=== PATIENT | male | born 1940 ===

== ENCOUNTER 2018-05-23 19:25 | Inpatient (IN) | payer MEDICARE, BC ==
[~2018-05-23] VITALS: Ht 175.3 cm; Wt 55.5 kg
[2018-05-23 20:24] VITALS: BP 136/97
[2018-05-23] MEDS ORDERED: MAG HYDROX/AL HYDROX/SIMETH 30 ML ORAL.SUSP PO PRN (20:45)
[2018-05-23] MEDS ORDERED: MAGNESIUM HYDROXIDE 2,400 MG/30 ML ORAL.SUSP. PO PRN (20:45)
[2018-05-23] MEDS ORDERED: METHYL SALICYLATE/MENTHOL TOPICAL OINTMENT 29GM TUBE. TP PRN (20:45)
[2018-05-23] MEDS ORDERED: ACETAMINOPHEN 325 MG TABLET PO PRN (20:45)
[2018-05-23] MEDS ORDERED: LISINOPRIL 20 MG TABLET PO SCH (21:00)
[2018-05-23] MEDS ORDERED: DONE10TA7 PO (21:03)
[2018-05-23] MEDS ORDERED: FURO20TA3 PO (21:03)
[2018-05-23] MEDS ORDERED: ATOR40TA59 PO (21:03)
[2018-05-23] MEDS ORDERED: BENA20TA4 PO (21:03)
[2018-05-23] MEDS ORDERED: IPRA30SP NS (21:03)
[2018-05-23] MEDS ORDERED: TAMS0.4C2 PO (21:03)
[2018-05-23] MEDS ORDERED: LEVE500T6 PO (21:03)
[2018-05-23] MEDS ORDERED: ASPI325T8 PO (21:03)
[2018-05-23] MEDS ORDERED: METF500T5 PO (21:03)
[2018-05-23 21:40] LABS: ALBUMIN 3.6 g/dL (3.4-5.0); ALBUMIN/GLOBULIN RATIO 1.1 (1.0-1.7); BASO # 0.1 x10^3/uL (0.0-0.2); BASO % 1 % (0-3); CALCIUM 9.1 mg/dL (8.5-10.1); CREATININE 0.8 mg/dL (0.7-1.3); EOS # 0.2 x10^3/uL (0.0-0.7); EOS % 2 % (0-3); HEMATOCRIT 41.5 % (39.0-53.0); HEMOGLOBIN 14.4 g/dL (13.0-17.5); LYMPH # 1.8 x10^3/uL (1.0-4.8); LYMPH % 22 % (24-48); MAGNESIUM 1.9 mg/dL (1.8-2.4); MEAN CORPUSCULAR HEMOGLOBIN 33 pg (25-35); MEAN CORPUSCULAR HGB CONC 35 g/dL (31-37); MEAN CORPUSCULAR VOLUME 94 fL (79-100); MONO # 0.6 x10^3/uL (0.0-1.1); MONO % 7 % (0-9); NEUT # 5.8 x10^3uL (1.8-7.7); NEUT % 68 % (31-73); PLATELET COUNT 296 x10^3/uL (140-400); POTASSIUM 3.8 mmol/L (3.5-5.1); RED BLOOD COUNT 4.39 x10^6/uL (4.30-5.70); RED CELL DISTRIBUTION WIDTH 13.7 % (11.5-14.5); TOTAL BILIRUBIN 0.4 mg/dL (0.2-1.0); TOTAL PROTEIN 6.9 g/dL (6.4-8.2); WHITE BLOOD COUNT 8.6 x10^3/uL (4.0-11.0)
[2018-05-23] MEDS: levETIRAcetam 500 MG TABLET PO SCH (22:01)
[2018-05-23] MEDS: DONEPEZIL HCL 10 MG TABLET PO SCH (22:02)
[2018-05-24 05:44] VITALS: BP 163/93
[2018-05-24] MEDS: IPRATROPIUM BROMIDE 0.06% NASAL SPRAY 15ML BOTTLE NS SCH ×2 (09:00→19:22)
[2018-05-24] MEDS ORDERED: FUROSEMIDE 20 MG TABLET PO SCH (09:00)
[2018-05-24] MEDS: metFORMIN 500 MG TABLET PO SCH ×2 (09:54→17:23)
[2018-05-24] MEDS: TAMSULOSIN 0.4 MG CAP.ER.24H. PO SCH (09:54)
[2018-05-24] MEDS: ASPIRIN 325 MG TABLET PO SCH (09:54)
[2018-05-24] MEDS: ATORVASTATIN CALCIUM 20 MG TABLET PO SCH (09:54)
[2018-05-24] MEDS: levETIRAcetam 500 MG TABLET PO SCH ×2 (09:54→19:22)
[2018-05-24] MEDS: LISINOPRIL 20 MG TABLET PO SCH (09:56)
[2018-05-24] MEDS: amLODIPine BESYLATE 5 MG TABLET PO SCH (11:30)
[2018-05-24] MEDS: NICOTINE 14MG PATCH. TD SCH (13:23)
[2018-05-24 13:36] LABS: THYROID STIM HORMONE (TSH) 3.921 uIU/mL (0.358-3.740)
[2018-05-24 15:54] VITALS: BP 108/62
[2018-05-24] MEDS: DONEPEZIL HCL 10 MG TABLET PO SCH (19:22)
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
--- NOTE | 2018-05-24 20:51 | PDOC ---
Exam Note: Lucas Note: Please also refer to the separate dictated note~for this date of service dictated separately.~Patient seen individually. Discussed the patient with Nursing staff reviewed the chart.~Reviewed interim history and current functioning. Reviewed vital signs,~Labs/ Radiology~and current medications noted below. Continue current treatment with the changes noted in the dictated addendum note Assessment: Vital Signs: Vital Signs Date Time Temp Pulse Resp B/P (MAP) Pulse Ox O2 Delivery O2 Flow Rate FiO2 05/24/18 15:54 98.1 72 20 108/62 (77) 97 I&O Intake and Output 05/24/18 07:00 Intake Total 180 ml Balance 180 ml Intake Oral 180 ml Labs: Laboratory Tests Test 05/23/18 21:00 White Blood Count 8.6 x10^3/uL (4.0-11.0) Red Blood Count 4.39 x10^6/uL (4.30-5.70) Hemoglobin 14.4 g/dL (13.0-17.5) Hematocrit 41.5 % (39.0-53.0) Mean Corpuscular Volume 94 fL (79-100) Mean Corpuscular Hemoglobin 33 pg (25-35) Mean Corpuscular Hemoglobin Concent 35 g/dL (31-37) Red Cell Distribution Width 13.7 % (11.5-14.5) Platelet Count 296 x10^3/uL (140-400) Neutrophils (%) (Auto) 68 % (31-73) Lymphocytes (%) (Auto) 22 % (24-48) L Monocytes (%) (Auto) 7 % (0-9) Eosinophils (%) (Auto) 2 % (0-3) Basophils (%) (Auto) 1 % (0-3) Neutrophils # (Auto) 5.8 x10^3uL (1.8-7.7) Lymphocytes # (Auto) 1.8 x10^3/uL (1.0-4.8) Monocytes # (Auto) 0.6 x10^3/uL (0.0-1.1) Eosinophils # (Auto) 0.2 x10^3/uL (0.0-0.7) Basophils # (Auto) 0.1 x10^3/uL (0.0-0.2) Sodium Level 130 mmol/L (136-145) L Potassium Level 3.8 mmol/L (3.5-5.1) Chloride Level 94 mmol/L (98-107) L Carbon Dioxide Level 30 mmol/L (21-32) Anion Gap 6 (6-14) Blood Urea Nitrogen 11 mg/dL (8-26) Creatinine 0.8 mg/dL (0.7-1.3) Estimated GFR (Cockcroft-Gault) 93.0 BUN/Creatinine Ratio 14 (6-20) Glucose Level 132 mg/dL (70-99) H Calcium Level 9.1 mg/dL (8.5-10.1) Magnesium Level 1.9 mg/dL (1.8-2.4) Iron Level 65 ug/dL (65-175) Total Iron Binding Capacity 263 ug/dL (250-450) Iron Saturation 25 % (15-34) Total Bilirubin 0.4 mg/dL (0.2-1.0) Aspartate Amino Transferase (AST) 18 U/L (15-37) Alanine Aminotransferase (ALT) 24 U/L (16-63) Alkaline Phosphatase 121 U/L (46-116) H Total Protein 6.9 g/dL (6.4-8.2) Albumin 3.6 g/dL (3.4-5.0) Albumin/Globulin Ratio 1.1 (1.0-1.7) Triglycerides Level 62 mg/dL (0-150) Cholesterol Level 173 mg/dL (0-200) LDL Cholesterol, Calculated 63 mg/dL (0-100) VLDL Cholesterol, Calculated 12 mg/dL (0-40) Non-HDL Cholesterol Calculated 75 mg/dL (0-129) HDL Cholesterol 98 mg/dL (40-60) H Cholesterol/HDL Ratio 1.0 Vitamin B12 Level 532 pg/mL (247-911) 25-Hydroxy Vitamin D Total 27.4 ng/mL (30-100) L Thyroid Stimulating Hormone (TSH) 3.921 uIU/mL (0.358-3.740) Thyroxine (T4) 8.0 ug/dL (4.5-12.0) Total Triiodothyronine (TT3) 86 ng/dL (71-180) Treponema pallidum Antibody Nonreactive (Nonreactive) Current Medications: Meds: Current Medications Acetaminophen (Tylenol) 650 mg PRN Q6HRS PRN PO PAIN / TEMP; Start 8/1/18 at 20:45 Multi-Ingredient Ointment (Analgesic [place]) 1 john PRN QID PRN TP MUSCLE PAIN; Start 05/23/18 at 20:45 Al Hydroxide/Mg Hydroxide (Mylanta Plus Xs) 15 ml PRN AFTMEALHC PRN PO DYSPEPSIA; Start 05/23/18 at 20:45 Magnesium Hydroxide (Milk Of Magnesia) 2,400 mg PRN QHS PRN PO CONSTIPATION; Start 05/23/18 at 20:45 Donepezil HCl (Aricept) 10 mg QHS PO Last administered on 05/24/18at 19:22; Start 05/23/18 at 21:00 Aspirin (Vivian Aspirin) 325 mg DAILY PO Last administered on 05/24/18at 09:54; Start 05/24/18 at 09:00 Furosemide (Lasix) 20 mg DAILY PO Last administered on 05/24/18at 09:54; Start at 09:00; Stop 05/24/18 at 11:14; Status DC Tamsulosin HCl (Flomax) 0.4 mg DAILY PO Last administered on 05/24/18at 09:54; Start 05/24/18 at 09:00 Atorvastatin Calcium (Lipitor) 40 mg DAILY PO Last administered on 05/24/18at 09: 54; Start 05/24/18 at 09:00 Lisinopril (Prinivil) 20 mg 05/23/18 PO Last administered on 05/24/18at 09:55; Start 05/23/18 at 21:00; Stop 05/23/18 at 21:10; Status DC Ipratropium [place] (Atrovent Nasal) 2 spray BID NS ; Start 05/24/18 at 09:00 Levetiracetam (Keppra) 500 mg BID PO Last administered on 05/24/18at 19:22; Start 05/23/18 at 21:00 Metformin HCl (Glucophage) 500 mg BIDWMEALS PO Last administered on 05/24/18at 17 :23; Start 05/24/18 at 08:00 Lisinopril (Prinivil) 20 mg DAILY PO Last administered on 05/24/18at 09:56; Start 05/24/18 at 09:00 Amlodipine Besylate (Norvasc) 5 mg DAILY PO ; Start 05/24/18 at 11:30 Nicotine (Nicoderm Cq 14mg) 1 patch DAILY TD Last administered on 05/24/18at 13: 23; Start 05/24/18 at 11:30 Active Scripts Active Reported Aspirin 325 Mg Tablet 325 Mg PO DAILY Atorvastatin Calcium 40 Mg Tablet 40 Mg PO DAILY Benazepril Hcl 20 Mg Tablet 20 Mg PO QHS Donepezil Hcl 10 Mg Tablet 10 Mg PO QHS Furosemide 20 Mg Tablet 20 Mg PO DAILY Ipratropium [place] 30 Ml [place] 2 Spr NS BID Levetiracetam 500 Mg Tablet 500 Mg PO BID Metformin Hcl 500 Mg Tablet 500 Mg PO BIDWMEALS Tamsulosin Hcl 0.4 Mg Cap.er.24h 0.4 Mg PO DAILY I have reviewed the current psychotropics carefully including drug interactions. Risk benefit ratio favors no change other than as noted in my dictated progress note. Diagnosis: Problems: (1) Anxiety disorder (2) Dementia in Alzheimer's disease with delusions (3) Dementia in Alzheimer's disease with depression (4) Dementia, vascular, with delusions (5) Dementia, vascular, with depression (6) Impulse control disorder CHAPITO CASTANO MD May 24, 2018 20:51
[2018-05-25 02:08] LABS: HEMOGLOBIN A1C 5.6 % (4.8-5.6)
[2018-05-25 05:56] VITALS: BP 130/70
[2018-05-25] MEDS: NICOTINE 14MG PATCH. TD SCH (07:55)
[2018-05-25] MEDS: ATORVASTATIN CALCIUM 20 MG TABLET PO SCH (07:57)
[2018-05-25] MEDS: ASPIRIN 325 MG TABLET PO SCH (07:57)
[2018-05-25] MEDS: TAMSULOSIN 0.4 MG CAP.ER.24H. PO SCH (07:58)
[2018-05-25] MEDS: LISINOPRIL 20 MG TABLET PO SCH (07:58)
[2018-05-25] MEDS: levETIRAcetam 500 MG TABLET PO SCH ×2 (07:58→19:34)
[2018-05-25] MEDS: amLODIPine BESYLATE 5 MG TABLET PO SCH (07:58)
[2018-05-25] MEDS: metFORMIN 500 MG TABLET PO SCH ×2 (07:58→16:36)
[2018-05-25] MEDS: IPRATROPIUM BROMIDE 0.06% NASAL SPRAY 15ML BOTTLE NS SCH ×2 (07:59→19:36)
[2018-05-25 12:07] LABS: BILIRUBIN,URINE NEG (NEG); CLARITY,URINE HAZY; COLOR,URINE AMBER; GLUCOSE,URINE NEG (NEG)
[2018-05-25 12:08] LABS: BACTERIA,URINE FEW /HPF (0-FEW); GRANULAR CASTS,URINE OCC /HPF; HYALINE CASTS, URINE MANY /HPF; NITRITE,URINE NEG (NEG); SQUAMOUS EPITHELIAL CELL,UR FEW /LPF; UROBILINOGEN,URINE 0.2 mg/dL (0.2 mg/dL)
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
[2018-05-25] MEDS: CHOLECALCIFEROL (VITAMIN D3) 50,000 UNIT CAPSULE PO SCH (13:41)
[2018-05-25 16:00] VITALS: BP 93/57
[2018-05-25] MEDS: DONEPEZIL HCL 10 MG TABLET PO SCH (19:34)
[2018-05-25] MEDS: QUEtiapine 25 MG TABLET. PO SCH (19:36)
--- NOTE | 2018-05-25 20:45 | PDOC ---
Exam Note: Lucas Note: Please also refer to the separate dictated note~for this date of service dictated separately.~Patient seen individually. Discussed the patient with Nursing staff reviewed the chart.~Reviewed interim history and current functioning. Reviewed vital signs,~Labs/ Radiology~and current medications noted below. Continue current treatment with the changes noted in the dictated addendum note Assessment: Vital Signs: Vital Signs Date Time Temp Pulse Resp B/P (MAP) Pulse Ox O2 Delivery O2 Flow Rate FiO2 05/25/18 16:00 98.1 98 18 93/57 (69) 95 I&O Intake and Output 05/25/18 07:00 Intake Total 840 ml Balance 840 ml Intake Oral 840 ml # Voids 1 Labs: Laboratory Tests Test 05/25/18 07:39 05/25/18 11:35 Glucose (Fingerstick) 121 mg/dL (70-99) H Urine Collection Type Unknown Urine Color [place] Urine Clarity Hazy Urine pH 6.5 Urine Specific [place] 1.015 Urine Protein 30 mg/dl (NEG-TRACE) Urine Glucose (UA) Neg mg/dL (NEG) Urine Ketones (Stick) Trace mg/dL (NEG) Urine Blood Trace (NEG) Urine Nitrite Neg (NEG) Urine Bilirubin Neg (NEG) Urine Urobilinogen Dipstick 0.2 mg/dL (0.2 mg/dL) Urine Leukocyte Esterase Neg (NEG) Urine RBC 3-5 /HPF (0-2) Urine WBC 1-4 /HPF (0-4) Urine Squamous Epithelial Cells Few /LPF Urine Bacteria Few /HPF (0-FEW) Urine Hyaline Casts Many /HPF Urine Granular Casts Occ /HPF Urine Mucus Mod /LPF Current Medications: Meds: Current Medications Acetaminophen (Tylenol) 650 mg PRN Q6HRS PRN PO PAIN / TEMP; Start 05/23/18 at 20:45 Multi-Ingredient Ointment (Analgesic [place]) 1 john PRN QID PRN TP MUSCLE PAIN; Start 05/23/18 at 20:45 Al Hydroxide/Mg Hydroxide (Mylanta Plus Xs) 15 ml PRN AFTMEALHC PRN PO DYSPEPSIA; Start 05/23/18 at 20:45 Magnesium Hydroxide (Milk Of Magnesia) 2,400 mg PRN QHS PRN PO CONSTIPATION; Start 05/23/18 at 20:45 Donepezil HCl (Aricept) 10 mg QHS PO Last administered on 05/25/18 19:34; Start 05/23/18 at 21:00 Aspirin (Vivian Aspirin) 325 mg DAILY PO Last administered on 05/25/18 07:57; Start 05/24/18 at 09:00 Furosemide (Lasix) 20 mg DAILY PO Last administered on 05/24/18 09:54; Start at 09:00; Stop 05/24/18 at 11:14; Status DC Tamsulosin HCl (Flomax) 0.4 mg DAILY PO Last administered on 05/25/18 07:58; Start 05/24/18 at 09:00 Atorvastatin Calcium (Lipitor) 40 mg DAILY PO Last administered on 05/25/18 07: 57; Start 05/24/18 at 09:00 Lisinopril (Prinivil) 20 mg 05/23/18 PO Last administered on 05/24/18 09:55; Start 05/23/18 at 21:00; Stop 05/23/18 at 21:10; Status DC Ipratropium [place] (Atrovent Nasal) 2 spray BID NS Last administered on 19:36; Start 05/24/18 at 09:00 Levetiracetam (Keppra) 500 mg BID PO Last administered on 05/25/18 19:34; Start 05/23/18 at 21:00 Metformin HCl (Glucophage) 500 mg BIDWMEALS PO Last administered on 05/25/18 16 :36; Start 05/24/18 at 08:00 Lisinopril (Prinivil) 20 mg DAILY PO Last administered on 05/25/18 07:58; Start 05/24/18 at 09:00 Amlodipine Besylate (Norvasc) 5 mg DAILY PO Last administered on 05/25/18 07:58 ; Start 05/24/18 at 11:30 Nicotine (Nicoderm Cq 14mg) 1 patch DAILY TD Last administered on 05/25/18 07: 55; Start 05/24/18 at 11:30 Vitamin D (Vitamin D3) 50,000 unit WEEKLY PO Last administered on 05/25/18 13: 41; Start 05/25/18 at 13:30 Sertraline HCl (Zoloft) 25 mg DAILY PO ; Start 05/26/18 at 09:00; Stop 05/27/18 at 09:01 Sertraline HCl (Zoloft) 50 mg DAILY PO ; Start 05/26/18 at 09:00 Quetiapine Fumarate (SEROquel) 25 mg QHS PO Last administered on 05/25/18at 19:36 ; Start 05/25/18 at 21:00 Active Scripts Active Reported Aspirin 325 Mg Tablet 325 Mg PO DAILY Atorvastatin Calcium 40 Mg Tablet 40 Mg PO DAILY Benazepril Hcl 20 Mg Tablet 20 Mg PO QHS Donepezil Hcl 10 Mg Tablet 10 Mg PO QHS Furosemide 20 Mg Tablet 20 Mg PO DAILY Ipratropium [place] 30 Ml [place] 2 Spr NS BID Levetiracetam 500 Mg Tablet 500 Mg PO BID Metformin Hcl 500 Mg Tablet 500 Mg PO BIDWMEALS Tamsulosin Hcl 0.4 Mg Cap.er.24h 0.4 Mg PO DAILY I have reviewed the current psychotropics carefully including drug interactions. Risk benefit ratio favors no change other than as noted in my dictated progress note. Diagnosis: Problems: (1) Anxiety disorder (2) Dementia in Alzheimer's disease with delusions (3) Dementia in Alzheimer's disease with depression (4) Dementia, vascular, with delusions (5) Dementia, vascular, with depression (6) Impulse control disorder CHAPITO CASTANO MD May 25, 2018 20:45
[2018-05-26 06:04] VITALS: BP 128/57
[2018-05-26] MEDS: LISINOPRIL 20 MG TABLET PO SCH (08:19)
[2018-05-26] MEDS: NICOTINE 14MG PATCH. TD SCH (08:19)
[2018-05-26] MEDS: ATORVASTATIN CALCIUM 20 MG TABLET PO SCH (08:20)
[2018-05-26] MEDS: TAMSULOSIN 0.4 MG CAP.ER.24H. PO SCH (08:20)
[2018-05-26] MEDS: ASPIRIN 325 MG TABLET PO SCH (08:20)
[2018-05-26] MEDS: levETIRAcetam 500 MG TABLET PO SCH ×2 (08:20→19:35)
[2018-05-26] MEDS: amLODIPine BESYLATE 5 MG TABLET PO SCH (08:21)
[2018-05-26] MEDS: metFORMIN 500 MG TABLET PO SCH ×2 (08:21→17:55)
[2018-05-26] MEDS: SERTRALINE 50 MG TABLET. PO SCH (08:35)
[2018-05-26] MEDS ORDERED: SERTRALINE 25 MG TABLET. PO SCH (09:00)
[2018-05-26] MEDS: IPRATROPIUM BROMIDE 0.06% NASAL SPRAY 15ML BOTTLE NS SCH ×2 (09:00→19:35)
[2018-05-26 16:15] VITALS: BP 117/68
[2018-05-26] MEDS: QUEtiapine 25 MG TABLET. PO SCH (19:35)
[2018-05-26] MEDS: DONEPEZIL HCL 10 MG TABLET PO SCH (19:35)
[2018-05-27 05:53] VITALS: BP 152/74
[2018-05-27] MEDS: SERTRALINE 50 MG TABLET. PO SCH (07:52)
[2018-05-27] MEDS: TAMSULOSIN 0.4 MG CAP.ER.24H. PO SCH (07:52)
[2018-05-27] MEDS: ATORVASTATIN CALCIUM 20 MG TABLET PO SCH (07:52)
[2018-05-27] MEDS: levETIRAcetam 500 MG TABLET PO SCH ×2 (07:52→21:50)
[2018-05-27] MEDS: NICOTINE 14MG PATCH. TD SCH (07:52)
[2018-05-27] MEDS: ASPIRIN 325 MG TABLET PO SCH (07:52)
[2018-05-27] MEDS: amLODIPine BESYLATE 5 MG TABLET PO SCH (07:53)
[2018-05-27] MEDS: LISINOPRIL 20 MG TABLET PO SCH (07:53)
[2018-05-27] MEDS: metFORMIN 500 MG TABLET PO SCH ×2 (07:53→16:47)
[2018-05-27] MEDS: IPRATROPIUM BROMIDE 0.06% NASAL SPRAY 15ML BOTTLE NS SCH ×2 (07:54→21:50)
[2018-05-27 16:26] VITALS: BP 110/61
--- NOTE | 2018-05-27 20:00 | PDOC ---
Exam Note: Lucas Note: Late entry for date of service May. Please also refer to the separate dictated note~for this date of service dictated separately.~Patient seen individually. Discussed the patient with Nursing staff reviewed the chart.~ Reviewed interim history and current functioning. Reviewed vital signs,~Labs/ Radiology~and current medications noted below. Continue current treatment with the changes noted in the dictated addendum note Assessment: Vital Signs: VS - Last 72 Hours, by Label Date Time Temp Pulse Resp B/P (MAP) Pulse Ox O2 Delivery O2 Flow Rate FiO2 05/27/18 16:26 99.0 64 20 110/61 (77) 94 Room Air 05/27/18 07:53 60 152/74 05/27/18 07:53 60 152/74 05/27/18 05:53 98.0 60 20 152/74 (100) 94 05/26/18 16:15 97.7 59 18 117/68 (84) 96 05/26/18 08:21 60 128/57 05/26/18 08:19 60 128/57 05/26/18 06:04 97.8 60 20 128/57 (80) 95 Room Air 05/25/18 16:00 98.1 98 18 93/57 (69) 95 05/25/18 07:58 67 130/70 05/25/18 07:58 67 130/70 05/25/18 05:56 98.3 67 14 130/70 (90) 92 Vital Signs Date Time Temp Pulse Resp B/P (MAP) Pulse Ox O2 Delivery O2 Flow Rate FiO2 05/27/18 16:26 99.0 64 20 110/61 (77) 94 Room Air I&O Intake and Output 05/27/18 07:00 Intake Total 1320 ml Balance 1320 ml Intake Oral 1320 ml # Voids 1 Labs: Laboratory Tests Test 05/27/18 07:30 Glucose (Fingerstick) 98 mg/dL (70-99) Current Medications: Meds: Current Medications Acetaminophen (Tylenol) 650 mg PRN Q6HRS PRN PO PAIN / TEMP; Start 05/23/18 at 20:45 Multi-Ingredient Ointment (Analgesic [place]) 1 john PRN QID PRN TP MUSCLE PAIN; Start 05/23/18 at 20:45 Al Hydroxide/Mg Hydroxide (Mylanta Plus Xs) 15 ml PRN AFTMEALHC PRN PO DYSPEPSIA; Start 05/23/18 at 20:45 Magnesium Hydroxide (Milk Of Magnesia) 2,400 mg PRN QHS PRN PO CONSTIPATION; Start 05/23/18 at 20:45 Donepezil HCl (Aricept) 10 mg QHS PO Last administered on 05/26/18at 19:35; Start 05/23/18 at 21:00 Aspirin (Vivian Aspirin) 325 mg DAILY PO Last administered on 05/27/18 07:52; Start 05/24/18 at 09:00 Furosemide (Lasix) 20 mg DAILY PO Last administered on 05/24/18 09:54; Start at 09:00; Stop 05/24/18 at 11:14; Status DC Tamsulosin HCl (Flomax) 0.4 mg DAILY PO Last administered on 05/27/18 07:52; Start 05/24/18 at 09:00 Atorvastatin Calcium (Lipitor) 40 mg DAILY PO Last administered on 05/27/18 07: 52; Start 05/24/18 at 09:00 Lisinopril (Prinivil) 20 mg 05/23/18 PO Last administered on 05/24/18 09:55; Start 05/23/18 at 21:00; Stop 05/23/18 at 21:10; Status DC Ipratropium [place] (Atrovent Nasal) 2 spray BID NS Last administered on 07:54; Start 05/24/18 at 09:00 Levetiracetam (Keppra) 500 mg BID PO Last administered on 05/27/18 07:52; Start 05/23/18 at 21:00 Metformin HCl (Glucophage) 500 mg BIDWMEALS PO Last administered on 05/27/18 16 :47; Start 05/24/18 at 08:00 Lisinopril (Prinivil) 20 mg DAILY PO Last administered on 05/27/18 07:53; Start 05/24/18 at 09:00 Amlodipine Besylate (Norvasc) 5 mg DAILY PO Last administered on 05/27/18 07:53 ; Start 05/24/18 at 11:30 Nicotine (Nicoderm Cq 14mg) 1 patch DAILY TD Last administered on 8/5/18at 07: 52; Start 05/24/18 at 11:30 Vitamin D (Vitamin D3) 50,000 unit WEEKLY PO Last administered on 05/25/18at 13: 41; Start 05/25/18 at 13:30 Sertraline HCl (Zoloft) 25 mg DAILY PO ; Start 05/26/18 at 09:00; Stop 05/26/18 at 19:55; Status DC Sertraline HCl (Zoloft) 50 mg DAILY PO Last administered on 05/27/18at 07:52; Start 05/26/18 at 09:00 Quetiapine Fumarate (SEROquel) 25 mg QHS PO Last administered on 05/26/18at 19:35 ; Start 05/25/18 at 21:00 Active Scripts Active Reported Aspirin 325 Mg Tablet 325 Mg PO DAILY Atorvastatin Calcium 40 Mg Tablet 40 Mg PO DAILY Benazepril Hcl 20 Mg Tablet 20 Mg PO QHS Donepezil Hcl 10 Mg Tablet 10 Mg PO QHS Furosemide 20 Mg Tablet 20 Mg PO DAILY Ipratropium [place] 30 Ml [place] 2 Spr NS BID Levetiracetam 500 Mg Tablet 500 Mg PO BID Metformin Hcl 500 Mg Tablet 500 Mg PO BIDWMEALS Tamsulosin Hcl 0.4 Mg Cap.er.24h 0.4 Mg PO DAILY I have reviewed the current psychotropics carefully including drug interactions. Risk benefit ratio favors no change other than as noted in my dictated progress note. Diagnosis: Problems: (1) Anxiety disorder (2) Dementia in Alzheimer's disease with delusions (3) Dementia in Alzheimer's disease with depression (4) Dementia, vascular, with delusions (5) Dementia, vascular, with depression (6) Impulse control disorder CHAPITO CASTANO MD May 27, 2018 20:00
--- NOTE | 2018-05-27 20:01 | PDOC ---
Exam Note: Lucas Note: Please also refer to the separate dictated note~for this date of service dictated separately.~Patient seen individually. Discussed the patient with Nursing staff reviewed the chart.~Reviewed interim history and current functioning. Reviewed vital signs,~Labs/ Radiology~and current medications noted below. Continue current treatment with the changes noted in the dictated addendum note Assessment: Vital Signs: Vital Signs Date Time Temp Pulse Resp B/P (MAP) Pulse Ox O2 Delivery O2 Flow Rate FiO2 05/27/18 16:26 99.0 64 20 110/61 (77) 94 Room Air I&O Intake and Output 05/27/18 07:00 Intake Total 1320 ml Balance 1320 ml Intake Oral 1320 ml # Voids 1 Labs: Laboratory Tests Test 05/27/18 07:30 Glucose (Fingerstick) 98 mg/dL (70-99) Current Medications: Meds: Current Medications Acetaminophen (Tylenol) 650 mg PRN Q6HRS PRN PO PAIN / TEMP; Start 05/23/18 at 20:45 Multi-Ingredient Ointment (Analgesic [place]) 1 john PRN QID PRN TP MUSCLE PAIN; Start 05/23/18 at 20:45 Al Hydroxide/Mg Hydroxide (Mylanta Plus Xs) 15 ml PRN AFTMEALHC PRN PO DYSPEPSIA; Start 05/23/18 at 20:45 Magnesium Hydroxide (Milk Of Magnesia) 2,400 mg PRN QHS PRN PO CONSTIPATION; Start 05/23/18 at 20:45 Donepezil HCl (Aricept) 10 mg QHS PO Last administered on 05/26/18at 19:35; Start 05/23/18 at 21:00 Aspirin (Vivian Aspirin) 325 mg DAILY PO Last administered on 05/27/18at 07:52; Start 05/24/18 at 09:00 Furosemide (Lasix) 20 mg DAILY PO Last administered on 05/24/18 09:54; Start at 09:00; Stop 05/24/18 at 11:14; Status DC Tamsulosin HCl (Flomax) 0.4 mg DAILY PO Last administered on 05/27/18 07:52; Start 05/24/18 at 09:00 Atorvastatin Calcium (Lipitor) 40 mg DAILY PO Last administered on 05/27/18at 07: 52; Start 05/24/18 at 09:00 Lisinopril (Prinivil) 20 mg 05/23/18 PO Last administered on 05/24/18at 09:55; Start 05/23/18 at 21:00; Stop 05/23/18 at 21:10; Status DC Ipratropium [place] (Atrovent Nasal) 2 spray BID NS Last administered on 07:54; Start 05/24/18 at 09:00 Levetiracetam (Keppra) 500 mg BID PO Last administered on 05/27/18 07:52; Start 05/23/18 at 21:00 Metformin HCl (Glucophage) 500 mg BIDWMEALS PO Last administered on 05/27/18 16 :47; Start 05/24/18 at 08:00 Lisinopril (Prinivil) 20 mg DAILY PO Last administered on 05/27/18 07:53; Start 05/24/18 at 09:00 Amlodipine Besylate (Norvasc) 5 mg DAILY PO Last administered on 05/27/18 07:53 ; Start 05/24/18 at 11:30 Nicotine (Nicoderm Cq 14mg) 1 patch DAILY TD Last administered on 05/27/18 07: 52; Start 05/24/18 at 11:30 Vitamin D (Vitamin D3) 50,000 unit WEEKLY PO Last administered on 05/25/18at 13: 41; Start 05/25/18 at 13:30 Sertraline HCl (Zoloft) 25 mg DAILY PO ; Start 05/26/18 at 09:00; Stop 05/26/18 at 19:55; Status DC Sertraline HCl (Zoloft) 50 mg DAILY PO Last administered on 05/27/18 07:52; Start 05/26/18 at 09:00 Quetiapine Fumarate (SEROquel) 25 mg QHS PO Last administered on 05/26/18 19:35 ; Start 05/25/18 at 21:00 Active Scripts Active Reported Aspirin 325 Mg Tablet 325 Mg PO DAILY Atorvastatin Calcium 40 Mg Tablet 40 Mg PO DAILY Benazepril Hcl 20 Mg Tablet 20 Mg PO QHS Donepezil Hcl 10 Mg Tablet 10 Mg PO QHS Furosemide 20 Mg Tablet 20 Mg PO DAILY Ipratropium [place] 30 Ml [place] 2 Spr NS BID Levetiracetam 500 Mg Tablet 500 Mg PO BID Metformin Hcl 500 Mg Tablet 500 Mg PO BIDWMEALS Tamsulosin Hcl 0.4 Mg Cap.er.24h 0.4 Mg PO DAILY I have reviewed the current psychotropics carefully including drug interactions. Risk benefit ratio favors no change other than as noted in my dictated progress note. Diagnosis: Problems: (1) Anxiety disorder (2) Dementia in Alzheimer's disease with delusions (3) Dementia in Alzheimer's disease with depression (4) Dementia, vascular, with delusions (5) Dementia, vascular, with depression (6) Impulse control disorder CHAPITO CASTANO MD May 27, 2018 20:01
[2018-05-27] MEDS: DONEPEZIL HCL 10 MG TABLET PO SCH (21:50)
[2018-05-27] MEDS: QUEtiapine 25 MG TABLET. PO SCH (21:50)
--- NOTE | 2018-05-27 23:22 | PN ---
DATE: 05/25/2018 PSYCHIATRIC PROGRESS NOTE This late entry 05/25/2018 covers elements not covered in my initial note. SUBJECTIVE: Met with the patient in the evening. The patient remains confused, anxious, redirectable. REVIEW OF SYSTEMS: Hard of hearing. Impaired ambulation. No CV, , pulmonary, eye system symptoms on review. MENTAL STATUS EXAM: Oriented to himself. Insight, judgment, recent, remote memory, attention, concentration, fund of knowledge is poor, consistent with his diagnoses mentioned in my initial note. PLAN: No change from initial note, but the patient's UA is negative. We will start Zoloft 25 mg a day, increase to 50 mg a day in 2 days. He has been wanting to leave, anxious, wandering, short-term memory is impaired. Also appears paranoid. We will add Seroquel 25 mg at bedtime. Adjust further as clinically indicated. MAN Wayne CASTANO MD DR: HUNG/arianne JOB#: [id number] / [id number]
[2018-05-28 06:34] VITALS: BP 134/59
[2018-05-28] MEDS: amLODIPine BESYLATE 5 MG TABLET PO SCH (08:14)
[2018-05-28] MEDS: LISINOPRIL 20 MG TABLET PO SCH (08:15)
[2018-05-28] MEDS: levETIRAcetam 500 MG TABLET PO SCH ×2 (08:15→20:22)
[2018-05-28] MEDS: TAMSULOSIN 0.4 MG CAP.ER.24H. PO SCH (08:15)
[2018-05-28] MEDS: ASPIRIN 325 MG TABLET PO SCH (08:15)
[2018-05-28] MEDS: metFORMIN 500 MG TABLET PO SCH ×2 (08:15→17:10)
[2018-05-28] MEDS: ATORVASTATIN CALCIUM 20 MG TABLET PO SCH (08:15)
[2018-05-28] MEDS: IPRATROPIUM BROMIDE 0.06% NASAL SPRAY 15ML BOTTLE NS SCH ×2 (08:16→20:23)
[2018-05-28] MEDS: NICOTINE 14MG PATCH. TD SCH (08:16)
[2018-05-28] MEDS: SERTRALINE 50 MG TABLET. PO SCH (08:16)
[2018-05-28 16:13] VITALS: BP 126/54
[2018-05-28] MEDS: DONEPEZIL HCL 10 MG TABLET PO SCH (20:22)
[2018-05-28] MEDS: QUEtiapine 25 MG TABLET. PO SCH (20:22)
--- NOTE | 2018-05-28 21:04 | PN ---
DATE: 05/26/2018 PSYCHIATRIC PROGRESS NOTE This is a late entry for 05/26/2018, covers elements not covered in my initial note. SUBJECTIVE: I met with the patient in the evening. The patient slept 5-3/4 hours previous night, remains confused, otherwise cooperative, anxious at times, restless. REVIEW OF SYSTEMS: No CV, , pulmonary, eye, ENT system symptoms on review. Reliability poor. MENTAL STATUS EXAM: Oriented to himself. Insight, judgment, recent and remote memory, attention, concentration, fund of knowledge poor, consistent with his diagnosis mentioned in my initial note. PLAN: No change from initial note. MAN Wayne CASTANO MD DR: HUNG/arianne JOB#: [id number] / [id number]
--- NOTE | 2018-05-28 21:09 | PDOC ---
Exam Note: Lucas Note: Please also refer to the separate dictated note~for this date of service dictated separately.~Patient seen individually. Discussed the patient with Nursing staff reviewed the chart.~Reviewed interim history and current functioning. Reviewed vital signs,~Labs/ Radiology~and current medications noted below. Continue current treatment with the changes noted in the dictated addendum note Assessment: Vital Signs: Vital Signs Date Time Temp Pulse Resp B/P (MAP) Pulse Ox O2 Delivery O2 Flow Rate FiO2 05/28/18 16:13 98.3 62 20 126/54 (78) 95 05/28/18 06:34 Room Air I&O Intake and Output 05/28/18 07:00 Intake Total 1320 ml Balance 1320 ml Intake Oral 1320 ml # Voids 1 Labs: Laboratory Tests Test 05/28/18 07:16 Glucose (Fingerstick) 95 mg/dL (70-99) Current Medications: Meds: Current Medications Acetaminophen (Tylenol) 650 mg PRN Q6HRS PRN PO PAIN / TEMP; Start 05/23/18 at 20:45 Multi-Ingredient Ointment (Analgesic [place]) 1 john PRN QID PRN TP MUSCLE PAIN; Start 05/23/18 at 20:45 Al Hydroxide/Mg Hydroxide (Mylanta Plus Xs) 15 ml PRN AFTMEALHC PRN PO DYSPEPSIA; Start 05/23/18 at 20:45 Magnesium Hydroxide (Milk Of Magnesia) 2,400 mg PRN QHS PRN PO CONSTIPATION; Start 05/23/18 at 20:45 Donepezil HCl (Aricept) 10 mg QHS PO Last administered on 05/28/18at 20:22; Start 05/23/18 at 21:00 Aspirin (Vivian Aspirin) 325 mg DAILY PO Last administered on 05/28/18at 08:15; Start 05/24/18 at 09:00 Furosemide (Lasix) 20 mg DAILY PO Last administered on 05/24/18at 09:54; Start at 09:00; Stop 05/24/18 at 11:14; Status DC Tamsulosin HCl (Flomax) 0.4 mg DAILY PO Last administered on 05/28/18at 08:15; Start 05/24/18 at 09:00 Atorvastatin Calcium (Lipitor) 40 mg DAILY PO Last administered on 05/28/18at 08: 15; Start 05/24/18 at 09:00 Lisinopril (Prinivil) 20 mg 05/23/18 PO Last administered on 05/24/18at 09:55; Start 05/23/18 at 21:00; Stop 05/23/18 at 21:10; Status DC Ipratropium [place] (Atrovent Nasal) 2 spray BID NS Last administered on 20:23; Start 05/24/18 at 09:00 Levetiracetam (Keppra) 500 mg BID PO Last administered on 05/28/18 20:22; Start 05/23/18 at 21:00 Metformin HCl (Glucophage) 500 mg BIDWMEALS PO Last administered on 05/28/18 17 :10; Start 05/24/18 at 08:00 Lisinopril (Prinivil) 20 mg DAILY PO Last administered on 05/28/18 08:15; Start 05/24/18 at 09:00 Amlodipine Besylate (Norvasc) 5 mg DAILY PO Last administered on 05/28/18 08:14 ; Start 05/24/18 at 11:30 Nicotine (Nicoderm Cq 14mg) 1 patch DAILY TD Last administered on 05/28/18 08: 16; Start 05/24/18 at 11:30 Vitamin D (Vitamin D3) 50,000 unit WEEKLY PO Last administered on 05/25/18at 13: 41; Start 05/25/18 at 13:30 Sertraline HCl (Zoloft) 25 mg DAILY PO ; Start 05/26/18 at 09:00; Stop 05/26/18 at 19:55; Status DC Sertraline HCl (Zoloft) 50 mg DAILY PO Last administered on 05/28/18 08:16; Start 05/26/18 at 09:00 Quetiapine Fumarate (SEROquel) 25 mg QHS PO Last administered on 05/28/18 20:22 ; Start 05/25/18 at 21:00 Active Scripts Active Reported Aspirin 325 Mg Tablet 325 Mg PO DAILY Atorvastatin Calcium 40 Mg Tablet 40 Mg PO DAILY Benazepril Hcl 20 Mg Tablet 20 Mg PO QHS Donepezil Hcl 10 Mg Tablet 10 Mg PO QHS Furosemide 20 Mg Tablet 20 Mg PO DAILY Ipratropium [place] 30 Ml [place] 2 Spr NS BID Levetiracetam 500 Mg Tablet 500 Mg PO BID Metformin Hcl 500 Mg Tablet 500 Mg PO BIDWMEALS Tamsulosin Hcl 0.4 Mg Cap.er.24h 0.4 Mg PO DAILY I have reviewed the current psychotropics carefully including drug interactions. Risk benefit ratio favors no change other than as noted in my dictated progress note. Diagnosis: Problems: (1) Anxiety disorder (2) Dementia in Alzheimer's disease with delusions (3) Dementia in Alzheimer's disease with depression (4) Dementia, vascular, with delusions (5) Dementia, vascular, with depression (6) Impulse control disorder CHAPITO CASTANO MD May 28, 2018 21:08
--- NOTE | 2018-05-28 21:11 | PN ---
DATE: 05/27/2018 This is a late entry 05/27/2018 covers elements not covered in my initial note. SUBJECTIVE: I met with the patient in the evening. The patient has been confused, cooperative, social, unable to find his room and had to walk with him after my rounds to his room and he was very appreciative of this. REVIEW OF SYSTEMS: No CV, , pulmonary, eye, ENT system symptoms on review. Reliability poor. MENTAL STATUS EXAM: Oriented to himself. Insight, judgment, recent and remote memory, attention, concentration, fund of knowledge poor, consistent with his diagnosis mentioned in my initial note. PLAN: No change from initial note. MAN Wayne CASTANO MD DR: HUNG/arianne JOB#: [id number] / [id number]
[2018-05-29 06:51] VITALS: BP 125/71
[2018-05-29] MEDS: LISINOPRIL 20 MG TABLET PO SCH (08:03)
[2018-05-29] MEDS: ATORVASTATIN CALCIUM 20 MG TABLET PO SCH (08:03)
[2018-05-29] MEDS: TAMSULOSIN 0.4 MG CAP.ER.24H. PO SCH (08:05)
[2018-05-29] MEDS: SERTRALINE 50 MG TABLET. PO SCH (08:05)
[2018-05-29] MEDS: metFORMIN 500 MG TABLET PO SCH ×2 (08:05→17:27)
[2018-05-29] MEDS: amLODIPine BESYLATE 5 MG TABLET PO SCH (08:06)
[2018-05-29] MEDS: ASPIRIN 325 MG TABLET PO SCH (08:06)
[2018-05-29] MEDS: levETIRAcetam 500 MG TABLET PO SCH ×2 (08:06→19:49)
[2018-05-29] MEDS: NICOTINE 14MG PATCH. TD SCH (08:07)
[2018-05-29] MEDS: IPRATROPIUM BROMIDE 0.06% NASAL SPRAY 15ML BOTTLE NS SCH ×2 (08:08→19:50)
[2018-05-29 16:20] VITALS: BP 116/57
[2018-05-29] MEDS: QUEtiapine 25 MG TABLET. PO SCH (19:49)
[2018-05-29] MEDS: DONEPEZIL HCL 10 MG TABLET PO SCH (19:49)
--- NOTE | 2018-05-29 20:34 | PDOC ---
Exam Note: Lucas Note: Please also refer to the separate dictated note~for this date of service dictated separately.~Patient seen individually. Discussed the patient with Nursing staff reviewed the chart.~Reviewed interim history and current functioning. Reviewed vital signs,~Labs/ Radiology~and current medications noted below. Continue current treatment with the changes noted in the dictated addendum note Assessment: Vital Signs: Vital Signs Date Time Temp Pulse Resp B/P (MAP) Pulse Ox O2 Delivery O2 Flow Rate FiO2 05/29/18 16:20 98.0 64 16 116/57 (76) 94 05/28/18 06:34 Room Air I&O Intake and Output 05/29/18 06:59 Intake Total 1460 ml Balance 1460 ml Intake Oral 1460 ml # Voids 1 Labs: Laboratory Tests Test 05/29/18 07:06 Glucose (Fingerstick) 95 mg/dL (70-99) Current Medications: Meds: Current Medications Acetaminophen (Tylenol) 650 mg PRN Q6HRS PRN PO PAIN / TEMP; Start 05/23/18 at 20:45 Multi-Ingredient Ointment (Analgesic [place]) 1 john PRN QID PRN TP MUSCLE PAIN; Start 05/23/18 at 20:45 Al Hydroxide/Mg Hydroxide (Mylanta Plus Xs) 15 ml PRN AFTMEALHC PRN PO DYSPEPSIA; Start 05/23/18 at 20:45 Magnesium Hydroxide (Milk Of Magnesia) 2,400 mg PRN QHS PRN PO CONSTIPATION; Start 05/23/18 at 20:45 Donepezil HCl (Aricept) 10 mg QHS PO Last administered on 05/29/18at 19:49; Start 05/23/18 at 21:00 Aspirin (Vivian Aspirin) 325 mg DAILY PO Last administered on 05/29/18at 08:06; Start 05/24/18 at 09:00 Furosemide (Lasix) 20 mg DAILY PO Last administered on 05/24/18at 09:54; Start at 09:00; Stop 05/24/18 at 11:14; Status DC Tamsulosin HCl (Flomax) 0.4 mg DAILY PO Last administered on 05/29/18at 08:05; Start 05/24/18 at 09:00 Atorvastatin Calcium (Lipitor) 40 mg DAILY PO Last administered on 05/29/18at 08: 03; Start 05/24/18 at 09:00 Lisinopril (Prinivil) 20 mg 05/23/18 PO Last administered on 05/24/18at 09:55; Start 05/23/18 at 21:00; Stop 05/23/18 at 21:10; Status DC Ipratropium [place] (Atrovent Nasal) 2 spray BID NS Last administered on 19:50; Start 05/24/18 at 09:00 Levetiracetam (Keppra) 500 mg BID PO Last administered on 05/29/18 19:49; Start 05/23/18 at 21:00 Metformin HCl (Glucophage) 500 mg BIDWMEALS PO Last administered on 05/29/18 17 :27; Start 05/24/18 at 08:00 Lisinopril (Prinivil) 20 mg DAILY PO Last administered on 05/29/18 08:03; Start 05/24/18 at 09:00 Amlodipine Besylate (Norvasc) 5 mg DAILY PO Last administered on 05/29/18 08:06 ; Start 05/24/18 at 11:30 Nicotine (Nicoderm Cq 14mg) 1 patch DAILY TD Last administered on 05/29/18 08: 07; Start 05/24/18 at 11:30 Vitamin D (Vitamin D3) 50,000 unit WEEKLY PO Last administered on 05/25/18at 13: 41; Start 05/25/18 at 13:30 Sertraline HCl (Zoloft) 25 mg DAILY PO ; Start 05/26/18 at 09:00; Stop 05/26/18 at 19:55; Status DC Sertraline HCl (Zoloft) 50 mg DAILY PO Last administered on 05/29/18 08:05; Start 05/26/18 at 09:00 Quetiapine Fumarate (SEROquel) 25 mg QHS PO Last administered on 05/29/18 19:49 ; Start 05/25/18 at 21:00 Active Scripts Active Reported Aspirin 325 Mg Tablet 325 Mg PO DAILY Atorvastatin Calcium 40 Mg Tablet 40 Mg PO DAILY Benazepril Hcl 20 Mg Tablet 20 Mg PO QHS Donepezil Hcl 10 Mg Tablet 10 Mg PO QHS Furosemide 20 Mg Tablet 20 Mg PO DAILY Ipratropium [place] 30 Ml [place] 2 Spr NS BID Levetiracetam 500 Mg Tablet 500 Mg PO BID Metformin Hcl 500 Mg Tablet 500 Mg PO BIDWMEALS Tamsulosin Hcl 0.4 Mg Cap.er.24h 0.4 Mg PO DAILY I have reviewed the current psychotropics carefully including drug interactions. Risk benefit ratio favors no change other than as noted in my dictated progress note. Diagnosis: Problems: (1) Anxiety disorder (2) Dementia in Alzheimer's disease with delusions (3) Dementia in Alzheimer's disease with depression (4) Dementia, vascular, with delusions (5) Dementia, vascular, with depression (6) Impulse control disorder CHAPITO CASTANO MD May 29, 2018 20:34
--- NOTE | 2018-05-29 22:34 | PN ---
DATE: 05/28/2018 This is a late entry, 05/28/2018, covers the elements not covered in my initial note. SUBJECTIVE: I met with the patient in the evening. The patient slept 8 hours the previous evening, remains confused, wanders the hallways, hard of hearing, seem to know he was in the hospital as I questioned him. REVIEW OF SYSTEMS: No CV, , pulmonary, eye, ENT system symptoms on review. Reliability poor. MENTAL STATUS EXAM: Oriented to himself. Insight, judgment, recent and remote memory, attention, concentration, fund of knowledge poor, consistent with his diagnosis as mentioned in my initial note. PLAN: No change from initial note. MAN Wayne CASTANO MD DR: HUNG/arianne JOB#: [id number] / [id number]
[2018-05-30 05:53] VITALS: BP 126/65
[2018-05-30] MEDS: metFORMIN 500 MG TABLET PO SCH ×2 (07:51→16:50)
[2018-05-30] MEDS: ASPIRIN 325 MG TABLET PO SCH (07:51)
[2018-05-30] MEDS: levETIRAcetam 500 MG TABLET PO SCH ×2 (07:52→19:36)
[2018-05-30] MEDS: SERTRALINE 50 MG TABLET. PO SCH (07:52)
[2018-05-30] MEDS: amLODIPine BESYLATE 5 MG TABLET PO SCH (07:52)
[2018-05-30] MEDS: TAMSULOSIN 0.4 MG CAP.ER.24H. PO SCH (07:52)
[2018-05-30] MEDS: ATORVASTATIN CALCIUM 20 MG TABLET PO SCH (07:52)
[2018-05-30] MEDS: LISINOPRIL 20 MG TABLET PO SCH (07:53)
[2018-05-30] MEDS: NICOTINE 14MG PATCH. TD SCH (07:53)
[2018-05-30] MEDS: IPRATROPIUM BROMIDE 0.06% NASAL SPRAY 15ML BOTTLE NS SCH ×2 (07:54→19:43)
[2018-05-30 16:21] VITALS: BP 120/59
[2018-05-30] MEDS: DONEPEZIL HCL 10 MG TABLET PO SCH (19:36)
[2018-05-30] MEDS: QUEtiapine 25 MG TABLET. PO SCH (19:37)
--- NOTE | 2018-05-30 21:05 | PDOC ---
Exam Note: Lucas Note: Please also refer to the separate dictated note~for this date of service dictated separately.~Patient seen individually. Discussed the patient with Nursing staff reviewed the chart.~Reviewed interim history and current functioning. Reviewed vital signs,~Labs/ Radiology~and current medications noted below. Continue current treatment with the changes noted in the dictated addendum note Assessment: Vital Signs: Vital Signs Date Time Temp Pulse Resp B/P (MAP) Pulse Ox O2 Delivery O2 Flow Rate FiO2 05/30/18 16:21 97.8 63 18 120/59 (79) 93 05/28/18 06:34 Room Air I&O Intake and Output 05/30/18 06:59 Intake Total 1700 ml Balance 1700 ml Intake Oral 1700 ml # Voids 1 # Bowel Movements 1 Labs: Laboratory Tests Test 05/30/18 07:19 Glucose (Fingerstick) 102 mg/dL (70-99) H Current Medications: Meds: Current Medications Acetaminophen (Tylenol) 650 mg PRN Q6HRS PRN PO PAIN / TEMP; Start 05/23/18 at 20:45 Multi-Ingredient Ointment (Analgesic [place]) 1 john PRN QID PRN TP MUSCLE PAIN; Start 05/23/18 at 20:45 Al Hydroxide/Mg Hydroxide (Mylanta Plus Xs) 15 ml PRN AFTMEALHC PRN PO DYSPEPSIA; Start 05/23/18 at 20:45 Magnesium Hydroxide (Milk Of Magnesia) 2,400 mg PRN QHS PRN PO CONSTIPATION; Start 05/23/18 at 20:45 Donepezil HCl (Aricept) 10 mg QHS PO Last administered on 05/30/18at 19:36; Start 05/23/18 at 21:00 Aspirin (Vivian Aspirin) 325 mg DAILY PO Last administered on 05/30/18at 07:51; Start 05/24/18 at 09:00 Furosemide (Lasix) 20 mg DAILY PO Last administered on 05/24/18at 09:54; Start at 09:00; Stop 05/24/18 at 11:14; Status DC Tamsulosin HCl (Flomax) 0.4 mg DAILY PO Last administered on 05/30/18 07:52; Start 05/24/18 at 09:00 Atorvastatin Calcium (Lipitor) 40 mg DAILY PO Last administered on 05/30/18 07: 52; Start 05/24/18 at 09:00 Lisinopril (Prinivil) 20 mg 05/23/18 PO Last administered on 05/24/18 09:55; Start 05/23/18 at 21:00; Stop 05/23/18 at 21:10; Status DC Ipratropium [place] (Atrovent Nasal) 2 spray BID NS Last administered on 19:43; Start 05/24/18 at 09:00 Levetiracetam (Keppra) 500 mg BID PO Last administered on 05/30/18 19:36; Start 05/23/18 at 21:00 Metformin HCl (Glucophage) 500 mg BIDWMEALS PO Last administered on 05/30/18 16 :50; Start 05/24/18 at 08:00 Lisinopril (Prinivil) 20 mg DAILY PO Last administered on 05/30/18 07:53; Start 05/24/18 at 09:00 Amlodipine Besylate (Norvasc) 5 mg DAILY PO Last administered on 05/30/18 07:52 ; Start 05/24/18 at 11:30 Nicotine (Nicoderm Cq 14mg) 1 patch DAILY TD Last administered on 05/30/18 07: 53; Start 05/24/18 at 11:30 Vitamin D (Vitamin D3) 50,000 unit WEEKLY PO Last administered on 05/25/18 13: 41; Start 05/25/18 at 13:30 Sertraline HCl (Zoloft) 25 mg DAILY PO ; Start 05/26/18 at 09:00; Stop 05/26/18 at 19:55; Status DC Sertraline HCl (Zoloft) 50 mg DAILY PO Last administered on 05/30/18 07:52; Start 05/26/18 at 09:00 Quetiapine Fumarate (SEROquel) 25 mg QHS PO Last administered on 05/29/18 19:49 ; Start 05/25/18 at 21:00; Stop 05/30/18 at 16:30; Status DC Quetiapine Fumarate (SEROquel) 37.5 mg QHS PO Last administered on 05/30/18 19: 37; Start 05/30/18 at 21:00 Active Scripts Active Reported Aspirin 325 Mg Tablet 325 Mg PO DAILY Atorvastatin Calcium 40 Mg Tablet 40 Mg PO DAILY Benazepril Hcl 20 Mg Tablet 20 Mg PO QHS Donepezil Hcl 10 Mg Tablet 10 Mg PO QHS Furosemide 20 Mg Tablet 20 Mg PO DAILY Ipratropium [place] 30 Ml [place] 2 Spr NS BID Levetiracetam 500 Mg Tablet 500 Mg PO BID Metformin Hcl 500 Mg Tablet 500 Mg PO BIDWMEALS Tamsulosin Hcl 0.4 Mg Cap.er.24h 0.4 Mg PO DAILY I have reviewed the current psychotropics carefully including drug interactions. Risk benefit ratio favors no change other than as noted in my dictated progress note. Diagnosis: Problems: (1) Anxiety disorder (2) Dementia in Alzheimer's disease with delusions (3) Dementia in Alzheimer's disease with depression (4) Dementia, vascular, with delusions (5) Dementia, vascular, with depression (6) Impulse control disorder CHAPITO CASTANO MD May 30, 2018 21:05
--- NOTE | 2018-05-30 22:31 | PN ---
DATE: 05/29/2018 PSYCHIATRIC PROGRESS NOTE This is a late entry, 05/29, covers elements not covered in my initial note. SUBJECTIVE: I met with the patient in the evening. The patient remains confused, somewhat withdrawn, slept 6-3/4 hours, felt he is in [place]. REVIEW OF SYSTEMS: Ambulation here, ambulates on his own. No CV, , pulmonary, eye, ENT system symptoms on review. He is hard of hearing. Reliability poor. MENTAL STATUS EXAM: Oriented to himself. Insight, judgment, recent and remote memory, attention, concentration, fund of knowledge poor, consistent with his diagnosis from initial note. PLAN: No change from initial note. MAN Wayne CASTANO MD DR: HUNG/arianne JOB#: [id number] / [id number]
[2018-05-31 06:23] VITALS: BP 129/66
[2018-05-31] MEDS: ASPIRIN 325 MG TABLET PO SCH (08:32)
[2018-05-31] MEDS: metFORMIN 500 MG TABLET PO SCH ×2 (08:32→16:42)
[2018-05-31] MEDS: TAMSULOSIN 0.4 MG CAP.ER.24H. PO SCH (08:32)
[2018-05-31] MEDS: levETIRAcetam 500 MG TABLET PO SCH ×2 (08:32→19:01)
[2018-05-31] MEDS: IPRATROPIUM BROMIDE 0.06% NASAL SPRAY 15ML BOTTLE NS SCH ×2 (08:32→19:05)
[2018-05-31] MEDS: amLODIPine BESYLATE 5 MG TABLET PO SCH (08:33)
[2018-05-31] MEDS: LISINOPRIL 20 MG TABLET PO SCH (08:33)
[2018-05-31] MEDS: SERTRALINE 50 MG TABLET. PO SCH (08:33)
[2018-05-31] MEDS: ATORVASTATIN CALCIUM 20 MG TABLET PO SCH (08:34)
[2018-05-31] MEDS: NICOTINE 14MG PATCH. TD SCH (08:34)
[2018-05-31 15:37] VITALS: BP 111/66
[2018-05-31] MEDS: DONEPEZIL HCL 10 MG TABLET PO SCH (19:01)
[2018-05-31] MEDS: QUEtiapine 25 MG TABLET. PO SCH (19:02)
[2018-05-31] MEDS: SMZ/TMP 800/160MG TABLET. PO SCH (20:16)
--- NOTE | 2018-05-31 20:19 | PDOC ---
Exam Note: Lucas Note: Please also refer to the separate dictated note~for this date of service dictated separately.~Patient seen individually. Discussed the patient with Nursing staff reviewed the chart.~Reviewed interim history and current functioning. Reviewed vital signs,~Labs/ Radiology~and current medications noted below. Continue current treatment with the changes noted in the dictated addendum note Assessment: Vital Signs: Vital Signs Date Time Temp Pulse Resp B/P (MAP) Pulse Ox O2 Delivery O2 Flow Rate FiO2 05/31/18 15:37 98.8 64 18 111/66 (81) 93 Room Air I&O Intake and Output 05/31/18 07:00 Intake Total 1440 ml Balance 1440 ml Intake Oral 1440 ml # Voids 1 Labs: Laboratory Tests Test 05/31/18 07:24 Glucose (Fingerstick) 96 mg/dL (70-99) Current Medications: Meds: Current Medications Acetaminophen (Tylenol) 650 mg PRN Q6HRS PRN PO PAIN / TEMP; Start 05/23/18 at 20:45 Multi-Ingredient Ointment (Analgesic [place]) 1 john PRN QID PRN TP MUSCLE PAIN; Start 05/23/18 at 20:45 Al Hydroxide/Mg Hydroxide (Mylanta Plus Xs) 15 ml PRN AFTMEALHC PRN PO DYSPEPSIA; Start 05/23/18 at 20:45 Magnesium Hydroxide (Milk Of Magnesia) 2,400 mg PRN QHS PRN PO CONSTIPATION; Start 05/23/18 at 20:45 Donepezil HCl (Aricept) 10 mg QHS PO Last administered on 05/31/18at 19:01; Start 05/23/18 at 21:00 Aspirin (Vivian Aspirin) 325 mg DAILY PO Last administered on 05/31/18at 08:32; Start 05/24/18 at 09:00 Furosemide (Lasix) 20 mg DAILY PO Last administered on 05/24/18at 09:54; Start at 09:00; Stop 05/24/18 at 11:14; Status DC Tamsulosin HCl (Flomax) 0.4 mg DAILY PO Last administered on 05/31/18at 08:32; Start 05/24/18 at 09:00 Atorvastatin Calcium (Lipitor) 40 mg DAILY PO Last administered on 05/31/18at 08: 34; Start 05/24/18 at 09:00 Lisinopril (Prinivil) 20 mg 05/23/18 PO Last administered on 05/24/18 09:55; Start 05/23/18 at 21:00; Stop 05/23/18 at 21:10; Status DC Ipratropium [place] (Atrovent Nasal) 2 spray BID NS Last administered on 19:05; Start 05/24/18 at 09:00 Levetiracetam (Keppra) 500 mg BID PO Last administered on 05/31/18 19:01; Start 05/23/18 at 21:00 Metformin HCl (Glucophage) 500 mg BIDWMEALS PO Last administered on 05/31/18 16 :42; Start 05/24/18 at 08:00 Lisinopril (Prinivil) 20 mg DAILY PO Last administered on 05/31/18 08:33; Start 05/24/18 at 09:00 Amlodipine Besylate (Norvasc) 5 mg DAILY PO Last administered on 05/31/18 08:33 ; Start 05/24/18 at 11:30 Nicotine (Nicoderm Cq 14mg) 1 patch DAILY TD Last administered on 05/31/18 08: 34; Start 05/24/18 at 11:30 Vitamin D (Vitamin D3) 50,000 unit WEEKLY PO Last administered on 05/25/18 13: 41; Start 05/25/18 at 13:30 Sertraline HCl (Zoloft) 25 mg DAILY PO ; Start 05/26/18 at 09:00; Stop 05/26/18 at 19:55; Status DC Sertraline HCl (Zoloft) 50 mg DAILY PO Last administered on 05/31/18 08:33; Start 05/26/18 at 09:00 Quetiapine Fumarate (SEROquel) 25 mg QHS PO Last administered on 05/29/18 19:49 ; Start 05/25/18 at 21:00; Stop 05/30/18 at 16:30; Status DC Quetiapine Fumarate (SEROquel) 37.5 mg QHS PO Last administered on 05/31/18 19: 02; Start 05/30/18 at 21:00 Trimethoprim/ Sulfamethoxazole (Bactrim Ds) 1 tab BID PO Last administered on 8 /9/18at 20:16; Start 05/31/18 at 21:00 Active Scripts Active Reported Aspirin 325 Mg Tablet 325 Mg PO DAILY Atorvastatin Calcium 40 Mg Tablet 40 Mg PO DAILY Benazepril Hcl 20 Mg Tablet 20 Mg PO QHS Donepezil Hcl 10 Mg Tablet 10 Mg PO QHS Furosemide 20 Mg Tablet 20 Mg PO DAILY Ipratropium [place] 30 Ml [place] 2 Spr NS BID Levetiracetam 500 Mg Tablet 500 Mg PO BID Metformin Hcl 500 Mg Tablet 500 Mg PO BIDWMEALS Tamsulosin Hcl 0.4 Mg Cap.er.24h 0.4 Mg PO DAILY I have reviewed the current psychotropics carefully including drug interactions. Risk benefit ratio favors no change other than as noted in my dictated progress note. Diagnosis: Problems: (1) Anxiety disorder (2) Dementia in Alzheimer's disease with delusions (3) Dementia in Alzheimer's disease with depression (4) Dementia, vascular, with delusions (5) Dementia, vascular, with depression (6) Impulse control disorder CHAPITO CASTANO MD May 31, 2018 20:19
[2018-06-01 05:49] VITALS: BP 135/67
[2018-06-01] MEDS: metFORMIN 500 MG TABLET PO SCH ×2 (07:56→17:07)
[2018-06-01] MEDS: ASPIRIN 325 MG TABLET PO SCH (07:57)
[2018-06-01] MEDS: IPRATROPIUM BROMIDE 0.06% NASAL SPRAY 15ML BOTTLE NS SCH ×2 (07:57→19:27)
[2018-06-01] MEDS: TAMSULOSIN 0.4 MG CAP.ER.24H. PO SCH (07:57)
[2018-06-01] MEDS: levETIRAcetam 500 MG TABLET PO SCH ×2 (07:57→19:26)
[2018-06-01] MEDS: SMZ/TMP 800/160MG TABLET. PO SCH ×2 (07:57→19:26)
[2018-06-01] MEDS: amLODIPine BESYLATE 5 MG TABLET PO SCH (07:58)
[2018-06-01] MEDS: ATORVASTATIN CALCIUM 20 MG TABLET PO SCH (07:58)
[2018-06-01] MEDS: SERTRALINE 50 MG TABLET. PO SCH (07:59)
[2018-06-01] MEDS: LISINOPRIL 20 MG TABLET PO SCH (07:59)
[2018-06-01] MEDS: NICOTINE 14MG PATCH. TD SCH (07:59)
[2018-06-01] MEDS: CHOLECALCIFEROL (VITAMIN D3) 50,000 UNIT CAPSULE PO SCH (08:00)
[2018-06-01 09:17] LABS: BASO # 0.1 x10^3/uL (0.0-0.2); BASO % 1 % (0-3); EOS # 0.1 x10^3/uL (0.0-0.7); EOS % 1 % (0-3); HEMATOCRIT 37.1 % (39.0-53.0); HEMOGLOBIN 12.8 g/dL (13.0-17.5); LYMPH # 1.8 x10^3/uL (1.0-4.8); LYMPH % 22 % (24-48); MEAN CORPUSCULAR HEMOGLOBIN 33 pg (25-35); MEAN CORPUSCULAR HGB CONC 35 g/dL (31-37); MEAN CORPUSCULAR VOLUME 96 fL (79-100); MONO # 0.6 x10^3/uL (0.0-1.1); MONO % 7 % (0-9); NEUT # 5.8 x10^3uL (1.8-7.7); NEUT % 69 % (31-73); PLATELET COUNT 292 x10^3/uL (140-400); RED BLOOD COUNT 3.88 x10^6/uL (4.30-5.70); RED CELL DISTRIBUTION WIDTH 13.8 % (11.5-14.5); WHITE BLOOD COUNT 8.4 x10^3/uL (4.0-11.0)
[2018-06-01 09:28] LABS: ALBUMIN 3.2 g/dL (3.4-5.0); CALCIUM 9.1 mg/dL (8.5-10.1); CREATININE 0.8 mg/dL (0.7-1.3); POTASSIUM 4.1 mmol/L (3.5-5.1); TOTAL BILIRUBIN 0.3 mg/dL (0.2-1.0); TOTAL PROTEIN 6.3 g/dL (6.4-8.2)
--- NOTE | 2018-06-01 13:42 | PN ---
DATE: 05/30/2018 PSYCHIATRIC PROGRESS NOTE This is a late entry, 05/30, covers elements not covered in my initial note. SUBJECTIVE: I met with the patient evening of 05/30. Per nursing report, the patient is taking his medications whole. He remains confused, slept 7-1/2 hours. REVIEW OF SYSTEMS: No CV, , pulmonary, eye, ENT system symptoms on review. Reliability poor. MENTAL STATUS EXAM: Oriented to himself. Insight, judgment, recent and remote memory, attention, concentration, fund of knowledge poor, consistent with his diagnosis mentioned in my initial note. PLAN: Increase bedtime Seroquel from 25 mg to 37.5 mg. Continue rest unchanged. MAN Wayne CASTANO MD DR: HUNG/arianne JOB#: [id number] / [id number]
--- NOTE | 2018-06-01 13:45 | PN ---
DATE: 05/31/2018 PSYCHIATRIC PROGRESS NOTE This is a late entry, 05/31, covers elements not covered in my initial note. SUBJECTIVE: The patient was staffed at treatment team meeting with the entire team and the patient's , Sho, attended the conference as well. Lengthy discussion about his diagnosis, past history of agitation, aggression, even prior to his dementia. Appetite is 80%, sleeping 7 hours average. REVIEW OF SYSTEMS: No CV, , pulmonary, eye, ENT system symptoms on review. Reliability poor. MENTAL STATUS EXAM: Oriented to himself. Insight, judgment, recent and remote memory, attention, concentration, fund of knowledge poor, consistent with his diagnosis mentioned in my initial note. PLAN: No change from initial note. I also met with the patient at length in the evening of 05/31. MAN Wayne CASTANO MD DR: HUNG/arianne JOB#: [id number] / [id number]
[2018-06-01 16:14] VITALS: BP 93/55
[2018-06-01] MEDS: QUEtiapine 25 MG TABLET. PO SCH (19:25)
[2018-06-01] MEDS: DONEPEZIL HCL 10 MG TABLET PO SCH (19:26)
--- NOTE | 2018-06-01 20:46 | PDOC ---
Exam Note: Lucas Note: Please also refer to the separate dictated note~for this date of service dictated separately.~Patient seen individually. Discussed the patient with Nursing staff reviewed the chart.~Reviewed interim history and current functioning. Reviewed vital signs,~Labs/ Radiology~and current medications noted below. Continue current treatment with the changes noted in the dictated addendum note Assessment: Vital Signs: Vital Signs Date Time Temp Pulse Resp B/P (MAP) Pulse Ox O2 Delivery O2 Flow Rate FiO2 06/01/18 16:14 98.6 65 18 93/55 (68) 94 05/31/18 15:37 Room Air I&O Intake and Output 06/01/18 07:00 Intake Total 1680 ml Balance 1680 ml Intake Oral 1680 ml # Voids 1 Labs: Laboratory Tests Test 06/01/18 07:10 06/01/18 09:00 Glucose (Fingerstick) 94 mg/dL (70-99) White Blood Count 8.4 x10^3/uL (4.0-11.0) Red Blood Count 3.88 x10^6/uL (4.30-5.70) L Hemoglobin 12.8 g/dL (13.0-17.5) L Hematocrit 37.1 % (39.0-53.0) L Mean Corpuscular Volume 96 fL (79-100) Mean Corpuscular Hemoglobin 33 pg (25-35) Mean Corpuscular Hemoglobin Concent 35 g/dL (31-37) Red Cell Distribution Width 13.8 % (11.5-14.5) Platelet Count 292 x10^3/uL (140-400) Neutrophils (%) (Auto) 69 % (31-73) Lymphocytes (%) (Auto) 22 % (24-48) L Monocytes (%) (Auto) 7 % (0-9) Eosinophils (%) (Auto) 1 % (0-3) Basophils (%) (Auto) 1 % (0-3) Neutrophils # (Auto) 5.8 x10^3uL (1.8-7.7) Lymphocytes # (Auto) 1.8 x10^3/uL (1.0-4.8) Monocytes # (Auto) 0.6 x10^3/uL (0.0-1.1) Eosinophils # (Auto) 0.1 x10^3/uL (0.0-0.7) Basophils # (Auto) 0.1 x10^3/uL (0.0-0.2) Sodium Level 140 mmol/L (136-145) Potassium Level 4.1 mmol/L (3.5-5.1) Chloride Level 104 mmol/L (98-107) Carbon Dioxide Level 31 mmol/L (21-32) Anion Gap 5 (6-14) L Blood Urea Nitrogen 19 mg/dL (8-26) Creatinine 0.8 mg/dL (0.7-1.3) Estimated GFR (Cockcroft-Gault) 93.0 BUN/Creatinine Ratio 24 (6-20) H Glucose Level 99 mg/dL (70-99) Calcium Level 9.1 mg/dL (8.5-10.1) Total Bilirubin 0.3 mg/dL (0.2-1.0) Aspartate Amino Transferase (AST) 21 U/L (15-37) Alanine Aminotransferase (ALT) 31 U/L (16-63) Alkaline Phosphatase 93 U/L (46-116) Total Protein 6.3 g/dL (6.4-8.2) L Albumin 3.2 g/dL (3.4-5.0) L Albumin/Globulin Ratio 1.0 (1.0-1.7) Current Medications: Meds: Current Medications Acetaminophen (Tylenol) 650 mg PRN Q6HRS PRN PO PAIN / TEMP; Start 05/23/18 at 20:45 Multi-Ingredient Ointment (Analgesic [place]) 1 john PRN QID PRN TP MUSCLE PAIN; Start 05/23/18 at 20:45 Al Hydroxide/Mg Hydroxide (Mylanta Plus Xs) 15 ml PRN AFTMEALHC PRN PO DYSPEPSIA; Start 05/23/18 at 20:45 Magnesium Hydroxide (Milk Of Magnesia) 2,400 mg PRN QHS PRN PO CONSTIPATION; Start 05/23/18 at 20:45 Donepezil HCl (Aricept) 10 mg QHS PO Last administered on 06/01/18at 19:26; Start 05/23/18 at 21:00 Aspirin (Vivian Aspirin) 325 mg DAILY PO Last administered on 06/01/18at 07:57; Start 05/24/18 at 09:00 Furosemide (Lasix) 20 mg DAILY PO Last administered on 05/24/18 09:54; Start at 09:00; Stop 05/24/18 at 11:14; Status DC Tamsulosin HCl (Flomax) 0.4 mg DAILY PO Last administered on 06/01/18 07:57; Start 05/24/18 at 09:00 Atorvastatin Calcium (Lipitor) 40 mg DAILY PO Last administered on 06/01/18 07 :58; Start 05/24/18 at 09:00 Lisinopril (Prinivil) 20 mg 05/23/18 PO Last administered on 05/24/18 09:55; Start 05/23/18 at 21:00; Stop 05/23/18 at 21:10; Status DC Ipratropium [place] (Atrovent Nasal) 2 spray BID NS Last administered on 19:27; Start 05/24/18 at 09:00 Levetiracetam (Keppra) 500 mg BID PO Last administered on 06/01/18 19:26; Start 05/23/18 at 21:00 Metformin HCl (Glucophage) 500 mg BIDWMEALS PO Last administered on 06/01/18 17:07; Start 05/24/18 at 08:00 Lisinopril (Prinivil) 20 mg DAILY PO Last administered on 06/01/18 07:59; Start 05/24/18 at 09:00 Amlodipine Besylate (Norvasc) 5 mg DAILY PO Last administered on 06/01/18 07: 58; Start 05/24/18 at 11:30 Nicotine (Nicoderm Cq 14mg) 1 patch DAILY TD Last administered on 06/01/18 07: 59; Start 05/24/18 at 11:30 Vitamin D (Vitamin D3) 50,000 unit WEEKLY PO Last administered on 06/01/18 08: 00; Start 05/25/18 at 13:30 Sertraline HCl (Zoloft) 25 mg DAILY PO ; Start 05/26/18 at 09:00; Stop 05/26/18 at 19:55; Status DC Sertraline HCl (Zoloft) 50 mg DAILY PO Last administered on 06/01/18 07:59; Start 05/26/18 at 09:00 Quetiapine Fumarate (SEROquel) 25 mg QHS PO Last administered on 05/29/18at 19:49 ; Start 05/25/18 at 21:00; Stop 05/30/18 at 16:30; Status DC Quetiapine Fumarate (SEROquel) 37.5 mg QHS PO Last administered on 06/01/18at 19 :25; Start 05/30/18 at 21:00 Trimethoprim/ Sulfamethoxazole (Bactrim Ds) 1 tab BID PO Last administered on at 19:26; Start 05/31/18 at 21:00 Active Scripts Active Reported Aspirin 325 Mg Tablet 325 Mg PO DAILY Atorvastatin Calcium 40 Mg Tablet 40 Mg PO DAILY Benazepril Hcl 20 Mg Tablet 20 Mg PO QHS Donepezil Hcl 10 Mg Tablet 10 Mg PO QHS Furosemide 20 Mg Tablet 20 Mg PO DAILY Ipratropium [place] 30 Ml [place] 2 Spr NS BID Levetiracetam 500 Mg Tablet 500 Mg PO BID Metformin Hcl 500 Mg Tablet 500 Mg PO BIDWMEALS Tamsulosin Hcl 0.4 Mg Cap.er.24h 0.4 Mg PO DAILY I have reviewed the current psychotropics carefully including drug interactions. Risk benefit ratio favors no change other than as noted in my dictated progress note. Diagnosis: Problems: (1) Anxiety disorder (2) Dementia in Alzheimer's disease with delusions (3) Dementia in Alzheimer's disease with depression (4) Dementia, vascular, with delusions (5) Dementia, vascular, with depression (6) Impulse control disorder CHAPITO CASTANO MD Jun 01, 2018 20:46
[2018-06-02 06:39] VITALS: BP 134/69
[2018-06-02] MEDS: TAMSULOSIN 0.4 MG CAP.ER.24H. PO SCH (07:39)
[2018-06-02] MEDS: SMZ/TMP 800/160MG TABLET. PO SCH ×2 (07:39→19:58)
[2018-06-02] MEDS: metFORMIN 500 MG TABLET PO SCH ×2 (07:39→16:41)
[2018-06-02] MEDS: ATORVASTATIN CALCIUM 20 MG TABLET PO SCH (07:39)
[2018-06-02] MEDS: levETIRAcetam 500 MG TABLET PO SCH ×2 (07:39→19:58)
[2018-06-02] MEDS: ASPIRIN 325 MG TABLET PO SCH (07:39)
[2018-06-02] MEDS: amLODIPine BESYLATE 5 MG TABLET PO SCH (07:41)
[2018-06-02] MEDS: NICOTINE 14MG PATCH. TD SCH (07:42)
[2018-06-02] MEDS: LISINOPRIL 20 MG TABLET PO SCH (07:42)
[2018-06-02] MEDS: SERTRALINE 50 MG TABLET. PO SCH (07:42)
[2018-06-02] MEDS: IPRATROPIUM BROMIDE 0.06% NASAL SPRAY 15ML BOTTLE NS SCH ×2 (07:50→20:01)
[2018-06-02 16:25] VITALS: BP 129/81
[2018-06-02] MEDS: DONEPEZIL HCL 10 MG TABLET PO SCH (19:59)
[2018-06-02] MEDS: QUEtiapine 25 MG TABLET. PO SCH (19:59)
--- NOTE | 2018-06-02 23:04 | PDOC ---
Exam Note: Lucas Note: Please also refer to the separate dictated note~for this date of service dictated separately.~Patient seen individually. Discussed the patient with Nursing staff reviewed the chart.~Reviewed interim history and current functioning. Reviewed vital signs,~Labs/ Radiology~and current medications noted below. Continue current treatment with the changes noted in the dictated addendum note Assessment: Vital Signs: Vital Signs Date Time Temp Pulse Resp B/P (MAP) Pulse Ox O2 Delivery O2 Flow Rate FiO2 06/02/18 16:25 97.3 63 16 129/81 (97) 98 05/31/18 15:37 Room Air I&O Intake and Output 06/02/18 07:00 Intake Total 1080 ml Balance 1080 ml Intake Oral 1080 ml Current Medications: Meds: Current Medications Acetaminophen (Tylenol) 650 mg PRN Q6HRS PRN PO PAIN / TEMP; Start 05/23/18 at 20:45 Multi-Ingredient Ointment (Analgesic [place]) 1 john PRN QID PRN TP MUSCLE PAIN; Start 05/23/18 at 20:45 Al Hydroxide/Mg Hydroxide (Mylanta Plus Xs) 15 ml PRN AFTMEALHC PRN PO DYSPEPSIA; Start 05/23/18 at 20:45 Magnesium Hydroxide (Milk Of Magnesia) 2,400 mg PRN QHS PRN PO CONSTIPATION; Start 05/23/18 at 20:45 Donepezil HCl (Aricept) 10 mg QHS PO Last administered on 06/02/18at 19:59; Start 05/23/18 at 21:00 Aspirin (Vivian Aspirin) 325 mg DAILY PO Last administered on 06/02/18at 07:39; Start 05/24/18 at 09:00 Furosemide (Lasix) 20 mg DAILY PO Last administered on 05/24/18at 09:54; Start at 09:00; Stop 05/24/18 at 11:14; Status DC Tamsulosin HCl (Flomax) 0.4 mg DAILY PO Last administered on 06/02/18 07:39; Start 05/24/18 at 09:00 Atorvastatin Calcium (Lipitor) 40 mg DAILY PO Last administered on 06/02/18 07 :39; Start 05/24/18 at 09:00 Lisinopril (Prinivil) 20 mg 05/23/18 PO Last administered on 05/24/18 09:55; Start 05/23/18 at 21:00; Stop 05/23/18 at 21:10; Status DC Ipratropium [place] (Atrovent Nasal) 2 spray BID NS Last administered on 20:01; Start 05/24/18 at 09:00 Levetiracetam (Keppra) 500 mg BID PO Last administered on 06/02/18 19:58; Start 05/23/18 at 21:00 Metformin HCl (Glucophage) 500 mg BIDWMEALS PO Last administered on 06/02/18 16:41; Start 05/24/18 at 08:00 Lisinopril (Prinivil) 20 mg DAILY PO Last administered on 06/02/18 07:42; Start 05/24/18 at 09:00 Amlodipine Besylate (Norvasc) 5 mg DAILY PO Last administered on 06/02/18 07: 41; Start 05/24/18 at 11:30 Nicotine (Nicoderm Cq 14mg) 1 patch DAILY TD Last administered on 06/02/18 07: 42; Start 05/24/18 at 11:30 Vitamin D (Vitamin D3) 50,000 unit WEEKLY PO Last administered on 06/01/18 08: 00; Start 05/25/18 at 13:30 Sertraline HCl (Zoloft) 25 mg DAILY PO ; Start 05/26/18 at 09:00; Stop 05/26/18 at 19:55; Status DC Sertraline HCl (Zoloft) 50 mg DAILY PO Last administered on 06/02/18 07:42; Start 05/26/18 at 09:00 Quetiapine Fumarate (SEROquel) 25 mg QHS PO Last administered on 05/29/18 19:49 ; Start 05/25/18 at 21:00; Stop 05/30/18 at 16:30; Status DC Quetiapine Fumarate (SEROquel) 37.5 mg QHS PO Last administered on 06/02/18 19 :59; Start 05/30/18 at 21:00 Trimethoprim/ Sulfamethoxazole (Bactrim Ds) 1 tab BID PO Last administered on 19:58; Start 05/31/18 at 21:00 Active Scripts Active Reported Aspirin 325 Mg Tablet 325 Mg PO DAILY Atorvastatin Calcium 40 Mg Tablet 40 Mg PO DAILY Benazepril Hcl 20 Mg Tablet 20 Mg PO QHS Donepezil Hcl 10 Mg Tablet 10 Mg PO QHS Furosemide 20 Mg Tablet 20 Mg PO DAILY Ipratropium [place] 30 Ml [place] 2 Spr NS BID Levetiracetam 500 Mg Tablet 500 Mg PO BID Metformin Hcl 500 Mg Tablet 500 Mg PO BIDWMEALS Tamsulosin Hcl 0.4 Mg Cap.er.24h 0.4 Mg PO DAILY I have reviewed the current psychotropics carefully including drug interactions. Risk benefit ratio favors no change other than as noted in my dictated progress note. Diagnosis: Problems: (1) Anxiety disorder (2) Dementia in Alzheimer's disease with delusions (3) Dementia in Alzheimer's disease with depression (4) Dementia, vascular, with delusions (5) Dementia, vascular, with depression (6) Impulse control disorder CHAPITO CASTANO MD Jun 02, 2018 23:04
[2018-06-03 06:36] VITALS: BP 137/69
[2018-06-03] MEDS: SMZ/TMP 800/160MG TABLET. PO SCH ×2 (07:50→21:24)
[2018-06-03] MEDS: ASPIRIN 325 MG TABLET PO SCH (07:50)
[2018-06-03] MEDS: metFORMIN 500 MG TABLET PO SCH ×2 (07:50→17:12)
[2018-06-03] MEDS: TAMSULOSIN 0.4 MG CAP.ER.24H. PO SCH (07:51)
[2018-06-03] MEDS: ATORVASTATIN CALCIUM 20 MG TABLET PO SCH (07:51)
[2018-06-03] MEDS: levETIRAcetam 500 MG TABLET PO SCH ×2 (07:51→21:24)
[2018-06-03] MEDS: amLODIPine BESYLATE 5 MG TABLET PO SCH (07:52)
[2018-06-03] MEDS: SERTRALINE 50 MG TABLET. PO SCH (07:53)
[2018-06-03] MEDS: LISINOPRIL 20 MG TABLET PO SCH (07:53)
[2018-06-03] MEDS: NICOTINE 14MG PATCH. TD SCH (07:53)
[2018-06-03] MEDS: IPRATROPIUM BROMIDE 0.06% NASAL SPRAY 15ML BOTTLE NS SCH ×2 (08:07→21:25)
--- NOTE | 2018-06-03 09:15 | PN ---
DATE: 06/01/2018 PSYCHIATRIC PROGRESS NOTE This is a late entry of 06/01/2018, covers elements not covered in my initial note. SUBJECTIVE: I met with the patient in the evening of 06/01/2018. Overall, the patient is doing reasonably well. He remains confused, but has not been aggressive. REVIEW OF SYSTEMS: No CV, , pulmonary, eye, ENT system symptoms on review. Reliability poor. The patient is hard of hearing. MENTAL STATUS EXAM: Oriented to himself. Insight, judgment, recent and remote memory, attention, concentration, fund of knowledge poor, consistent with his diagnosis. IMPRESSION: Major neurocognitive disorder; Alzheimer, vascular with delusion, depression, behavioral disturbance. Rest unchanged. PLAN: Continue psychotropics from initial note. MAN Wayne CASTANO MD DR: HUNG/arianne JOB#: [id number] / [id number]
--- NOTE | 2018-06-03 09:35 | PN ---
DATE: 06/02/2018 This late entry, 06/02/2018, covers elements not covered in my initial note. SUBJECTIVE: I met with the patient in the evening. The patient slept 7-1/2 hours previous evening. He has had a wet cough. We will defer to Dr. Borjas. I met with him in his room at some length. He is confused but otherwise cooperative, much less paranoid. REVIEW OF SYSTEMS: No CV, , pulmonary, eye, ENT system symptoms on review. Reliability poor. MENTAL STATUS EXAM: Oriented to himself. Insight, judgment, recent and remote memory, attention, concentration, fund of knowledge poor, consistent with his diagnosis mentioned in my initial note. PLAN: No change from initial note and continue the Seroquel at current dosage. MAN Wayne CASTANO MD DR: HUNG/arianne JOB#: [id number] / [id number]
[2018-06-03 15:56] VITALS: BP 111/55
--- NOTE | 2018-06-03 20:00 | PDOC ---
Exam Note: Lucas Note: Please also refer to the separate dictated note~for this date of service dictated separately.~Patient seen individually. Discussed the patient with Nursing staff reviewed the chart.~Reviewed interim history and current functioning. Reviewed vital signs,~Labs/ Radiology~and current medications noted below. Continue current treatment with the changes noted in the dictated addendum note Assessment: Vital Signs: Vital Signs Date Time Temp Pulse Resp B/P (MAP) Pulse Ox O2 Delivery O2 Flow Rate FiO2 06/03/18 15:56 98.0 60 21 111/55 (73) 94 05/31/18 15:37 Room Air I&O Intake and Output 06/03/18 06:59 Intake Total 720 ml Balance 720 ml Intake Oral 720 ml Labs: Laboratory Tests Test 06/03/18 07:25 Glucose (Fingerstick) 94 mg/dL (70-99) Current Medications: Meds: Current Medications Acetaminophen (Tylenol) 650 mg PRN Q6HRS PRN PO PAIN / TEMP; Start 05/23/18 at 20:45 Multi-Ingredient Ointment (Analgesic [place]) 1 john PRN QID PRN TP MUSCLE PAIN; Start 05/23/18 at 20:45 Al Hydroxide/Mg Hydroxide (Mylanta Plus Xs) 15 ml PRN AFTMEALHC PRN PO DYSPEPSIA; Start 05/23/18 at 20:45 Magnesium Hydroxide (Milk Of Magnesia) 2,400 mg PRN QHS PRN PO CONSTIPATION; Start 05/23/18 at 20:45 Donepezil HCl (Aricept) 10 mg QHS PO Last administered on 06/02/18at 19:59; Start 05/23/18 at 21:00 Aspirin (Vivian Aspirin) 325 mg DAILY PO Last administered on 06/03/18at 07:50; Start 05/24/18 at 09:00 Furosemide (Lasix) 20 mg DAILY PO Last administered on 05/24/18at 09:54; Start at 09:00; Stop 05/24/18 at 11:14; Status DC Tamsulosin HCl (Flomax) 0.4 mg DAILY PO Last administered on 06/03/18at 07:51; Start 05/24/18 at 09:00 Atorvastatin Calcium (Lipitor) 40 mg DAILY PO Last administered on 06/03/18at 07 :51; Start 05/24/18 at 09:00 Lisinopril (Prinivil) 20 mg 05/23/18 PO Last administered on 05/24/18at 09:55; Start 05/23/18 at 21:00; Stop 05/23/18 at 21:10; Status DC Ipratropium [place] (Atrovent Nasal) 2 spray BID NS Last administered on at 20:01; Start 05/24/18 at 09:00 Levetiracetam (Keppra) 500 mg BID PO Last administered on 06/03/18at 07:51; Start 05/23/18 at 21:00 Metformin HCl (Glucophage) 500 mg BIDWMEALS PO Last administered on 06/03/18 17:12; Start 05/24/18 at 08:00 Lisinopril (Prinivil) 20 mg DAILY PO Last administered on 06/03/18at 07:53; Start 05/24/18 at 09:00 Amlodipine Besylate (Norvasc) 5 mg DAILY PO Last administered on 06/03/18 07: 52; Start 05/24/18 at 11:30 Nicotine (Nicoderm Cq 14mg) 1 patch DAILY TD Last administered on 06/03/18at 07: 53; Start 05/24/18 at 11:30 Vitamin D (Vitamin D3) 50,000 unit WEEKLY PO Last administered on 06/01/18at 08: 00; Start 05/25/18 at 13:30 Sertraline HCl (Zoloft) 25 mg DAILY PO ; Start 05/26/18 at 09:00; Stop 05/26/18 at 19:55; Status DC Sertraline HCl (Zoloft) 50 mg DAILY PO Last administered on 06/03/18at 07:53; Start 05/26/18 at 09:00 Quetiapine Fumarate (SEROquel) 25 mg QHS PO Last administered on 05/29/18at 19:49 ; Start 05/25/18 at 21:00; Stop 05/30/18 at 16:30; Status DC Quetiapine Fumarate (SEROquel) 37.5 mg QHS PO Last administered on 06/02/18at 19 :59; Start 05/30/18 at 21:00 Trimethoprim/ Sulfamethoxazole (Bactrim Ds) 1 tab BID PO Last administered on 8 /12/18at 07:50; Start 05/31/18 at 21:00 Active Scripts Active Reported Aspirin 325 Mg Tablet 325 Mg PO DAILY Atorvastatin Calcium 40 Mg Tablet 40 Mg PO DAILY Benazepril Hcl 20 Mg Tablet 20 Mg PO QHS Donepezil Hcl 10 Mg Tablet 10 Mg PO QHS Furosemide 20 Mg Tablet 20 Mg PO DAILY Ipratropium [place] 30 Ml [place] 2 Spr NS BID Levetiracetam 500 Mg Tablet 500 Mg PO BID Metformin Hcl 500 Mg Tablet 500 Mg PO BIDWMEALS Tamsulosin Hcl 0.4 Mg Cap.er.24h 0.4 Mg PO DAILY I have reviewed the current psychotropics carefully including drug interactions. Risk benefit ratio favors no change other than as noted in my dictated progress note. Diagnosis: Problems: (1) Anxiety disorder (2) Dementia in Alzheimer's disease with delusions (3) Dementia in Alzheimer's disease with depression (4) Dementia, vascular, with delusions (5) Dementia, vascular, with depression (6) Impulse control disorder CHAPITO CASTANO MD Jun 03, 2018 20:00
[2018-06-03] MEDS: DONEPEZIL HCL 10 MG TABLET PO SCH (21:00)
[2018-06-03] MEDS: QUEtiapine 25 MG TABLET. PO SCH (21:24)
[2018-06-04 06:14] VITALS: BP 134/63
[2018-06-04] MEDS: TAMSULOSIN 0.4 MG CAP.ER.24H. PO SCH (07:30)
[2018-06-04] MEDS: levETIRAcetam 500 MG TABLET PO SCH ×2 (07:30→19:20)
[2018-06-04] MEDS: metFORMIN 500 MG TABLET PO SCH ×2 (07:30→17:09)
[2018-06-04] MEDS: ASPIRIN 325 MG TABLET PO SCH (07:30)
[2018-06-04] MEDS: ATORVASTATIN CALCIUM 20 MG TABLET PO SCH (07:30)
[2018-06-04] MEDS: SMZ/TMP 800/160MG TABLET. PO SCH ×2 (07:30→19:20)
[2018-06-04] MEDS: amLODIPine BESYLATE 5 MG TABLET PO SCH (07:31)
[2018-06-04] MEDS: LISINOPRIL 20 MG TABLET PO SCH (07:32)
[2018-06-04] MEDS: SERTRALINE 50 MG TABLET. PO SCH (07:32)
[2018-06-04] MEDS: NICOTINE 14MG PATCH. TD SCH (07:34)
[2018-06-04] MEDS: IPRATROPIUM BROMIDE 0.06% NASAL SPRAY 15ML BOTTLE NS SCH ×2 (09:00→19:21)
[2018-06-04 16:18] VITALS: BP 117/66
[2018-06-04] MEDS: DONEPEZIL HCL 10 MG TABLET PO SCH (19:20)
[2018-06-04] MEDS: QUEtiapine 25 MG TABLET. PO SCH (19:20)
[2018-06-04] MEDS: LACTOBACILLUS RHAMNOSUS GG 1 CAPSULE. PO SCH (19:35)
--- NOTE | 2018-06-04 22:14 | PDOC ---
Exam Note: Lucas Note: Please also refer to the separate dictated note~for this date of service dictated separately.~Patient seen individually. Discussed the patient with Nursing staff reviewed the chart.~Reviewed interim history and current functioning. Reviewed vital signs,~Labs/ Radiology~and current medications noted below. Continue current treatment with the changes noted in the dictated addendum note Assessment: Vital Signs: Vital Signs Date Time Temp Pulse Resp B/P (MAP) Pulse Ox O2 Delivery O2 Flow Rate FiO2 06/04/18 16:18 98.6 61 18 117/66 (83) 94 06/04/18 06:14 Room Air I&O Intake and Output 06/04/18 06:59 Intake Total 1200 ml Balance 1200 ml Intake Oral 1200 ml Labs: Laboratory Tests Test 06/04/18 07:31 Glucose (Fingerstick) 92 mg/dL (70-99) Current Medications: Meds: Current Medications Acetaminophen (Tylenol) 650 mg PRN Q6HRS PRN PO PAIN / TEMP; Start 05/23/18 at 20:45 Multi-Ingredient Ointment (Analgesic [place]) 1 john PRN QID PRN TP MUSCLE PAIN; Start 05/23/18 at 20:45 Al Hydroxide/Mg Hydroxide (Mylanta Plus Xs) 15 ml PRN AFTMEALHC PRN PO DYSPEPSIA; Start 05/23/18 at 20:45 Magnesium Hydroxide (Milk Of Magnesia) 2,400 mg PRN QHS PRN PO CONSTIPATION; Start 05/23/18 at 20:45 Donepezil HCl (Aricept) 10 mg QHS PO Last administered on 06/04/18at 19:20; Start 05/23/18 at 21:00 Aspirin (Vivian Aspirin) 325 mg DAILY PO Last administered on 06/04/18at 07:30; Start 05/24/18 at 09:00 Furosemide (Lasix) 20 mg DAILY PO Last administered on 05/24/18at 09:54; Start at 09:00; Stop 05/24/18 at 11:14; Status DC Tamsulosin HCl (Flomax) 0.4 mg DAILY PO Last administered on 06/04/18at 07:30; Start 05/24/18 at 09:00 Atorvastatin Calcium (Lipitor) 40 mg DAILY PO Last administered on 06/04/18at 07 :30; Start 05/24/18 at 09:00 Lisinopril (Prinivil) 20 mg 05/23/18 PO Last administered on 05/24/18at 09:55; Start 05/23/18 at 21:00; Stop 05/23/18 at 21:10; Status DC Ipratropium [place] (Atrovent Nasal) 2 spray BID NS Last administered on 19:21; Start 05/24/18 at 09:00 Levetiracetam (Keppra) 500 mg BID PO Last administered on 06/04/18 19:20; Start 05/23/18 at 21:00 Metformin HCl (Glucophage) 500 mg BIDWMEALS PO Last administered on 06/04/18 17:09; Start 05/24/18 at 08:00 Lisinopril (Prinivil) 20 mg DAILY PO Last administered on 06/04/18 07:32; Start 05/24/18 at 09:00 Amlodipine Besylate (Norvasc) 5 mg DAILY PO Last administered on 06/04/18 07: 31; Start 05/24/18 at 11:30 Nicotine (Nicoderm Cq 14mg) 1 patch DAILY TD Last administered on 06/04/18 07: 34; Start 05/24/18 at 11:30 Vitamin D (Vitamin D3) 50,000 unit WEEKLY PO Last administered on 06/01/18at 08: 00; Start 05/25/18 at 13:30 Sertraline HCl (Zoloft) 25 mg DAILY PO ; Start 05/26/18 at 09:00; Stop 05/26/18 at 19:55; Status DC Sertraline HCl (Zoloft) 50 mg DAILY PO Last administered on 06/04/18 07:32; Start 05/26/18 at 09:00 Quetiapine Fumarate (SEROquel) 25 mg QHS PO Last administered on 05/29/18 19:49 ; Start 05/25/18 at 21:00; Stop 05/30/18 at 16:30; Status DC Quetiapine Fumarate (SEROquel) 37.5 mg QHS PO Last administered on 06/04/18 19 :20; Start 05/30/18 at 21:00 Trimethoprim/ Sulfamethoxazole (Bactrim Ds) 1 tab BID PO Last administered on 8 /13/18at 19:20; Start 05/31/18 at 21:00 Lactobacillus Rhamnosus (Culturelle) 1 cap BID PO Last administered on at 19:35; Start 06/04/18 at 21:00 Active Scripts Active Reported Aspirin 325 Mg Tablet 325 Mg PO DAILY Atorvastatin Calcium 40 Mg Tablet 40 Mg PO DAILY Benazepril Hcl 20 Mg Tablet 20 Mg PO QHS Donepezil Hcl 10 Mg Tablet 10 Mg PO QHS Furosemide 20 Mg Tablet 20 Mg PO DAILY Ipratropium [place] 30 Ml [place] 2 Spr NS BID Levetiracetam 500 Mg Tablet 500 Mg PO BID Metformin Hcl 500 Mg Tablet 500 Mg PO BIDWMEALS Tamsulosin Hcl 0.4 Mg Cap.er.24h 0.4 Mg PO DAILY I have reviewed the current psychotropics carefully including drug interactions. Risk benefit ratio favors no change other than as noted in my dictated progress note. Diagnosis: Problems: (1) Anxiety disorder (2) Dementia in Alzheimer's disease with delusions (3) Dementia in Alzheimer's disease with depression (4) Dementia, vascular, with delusions (5) Dementia, vascular, with depression (6) Impulse control disorder CHAPITO CASTANO MD Jun 04, 2018 22:14
--- NOTE | 2018-06-04 23:24 | PN ---
DATE: 06/03/2018 PSYCHIATRIC PROGRESS NOTE This is a late entry, 06/03, covers elements not covered in my initial note. SUBJECTIVE: I met with the patient in the evening. Overall, the patient remains confused, ambulates on his own, not aggressive. REVIEW OF SYSTEMS: No CV, , pulmonary, eye, ENT system symptoms on review. Reliability poor. MENTAL STATUS EXAM: Oriented to himself. Insight, judgment, recent and remote memory, attention, concentration, fund of knowledge poor, consistent with his diagnosis mentioned in my initial note. PLAN: No change from initial note. MAN Wayne CASTANO MD DR: UHNG/arianne JOB#: [id number] / [id number]
[2018-06-05 05:59] VITALS: BP 176/68
[2018-06-05] MEDS: amLODIPine BESYLATE 5 MG TABLET PO SCH (07:38)
[2018-06-05] MEDS: metFORMIN 500 MG TABLET PO SCH ×2 (07:38→17:01)
[2018-06-05] MEDS: ASPIRIN 325 MG TABLET PO SCH (07:38)
[2018-06-05] MEDS: NICOTINE 14MG PATCH. TD SCH (07:38)
[2018-06-05] MEDS: ATORVASTATIN CALCIUM 20 MG TABLET PO SCH (07:38)
[2018-06-05] MEDS: levETIRAcetam 500 MG TABLET PO SCH ×2 (07:38→19:43)
[2018-06-05] MEDS: SMZ/TMP 800/160MG TABLET. PO SCH ×2 (07:38→19:43)
[2018-06-05] MEDS: LACTOBACILLUS RHAMNOSUS GG 1 CAPSULE. PO SCH ×2 (07:38→19:43)
[2018-06-05] MEDS: TAMSULOSIN 0.4 MG CAP.ER.24H. PO SCH (07:38)
[2018-06-05] MEDS: SERTRALINE 50 MG TABLET. PO SCH (07:39)
[2018-06-05] MEDS: LISINOPRIL 20 MG TABLET PO SCH (07:39)
[2018-06-05] MEDS: IPRATROPIUM BROMIDE 0.06% NASAL SPRAY 15ML BOTTLE NS SCH ×2 (07:40→19:44)
--- NOTE | 2018-06-05 13:16 | PN ---
DATE: 06/04/2018 PSYCHIATRIC PROGRESS NOTE This is a late entry, 06/04, covers elements not covered in my initial note. SUBJECTIVE: I met with the patient in the afternoon. The patient has had a better day. He remains confused. REVIEW OF SYSTEMS: No CV, , pulmonary, eye, ENT system symptoms on review. MENTAL STATUS EXAM: Oriented to himself. Insight, judgment, recent and remote memory, attention, concentration, fund of knowledge poor, consistent with his diagnosis mentioned in my initial note. PLAN: No change from initial note. MAN Wayne CASTANO MD DR: HUNG/arianne JOB#: [id number] / [id number]
[2018-06-05 16:06] VITALS: BP 115/52
[2018-06-05] MEDS: QUEtiapine 25 MG TABLET. PO SCH (19:42)
[2018-06-05] MEDS: DONEPEZIL HCL 10 MG TABLET PO SCH (19:43)
[2018-06-06 05:30] VITALS: BP 126/60
[2018-06-06] MEDS: NICOTINE 14MG PATCH. TD SCH (07:23)
[2018-06-06] MEDS: ASPIRIN 325 MG TABLET PO SCH (07:24)
[2018-06-06] MEDS: ATORVASTATIN CALCIUM 20 MG TABLET PO SCH (07:24)
[2018-06-06] MEDS: levETIRAcetam 500 MG TABLET PO SCH ×2 (07:25→19:54)
[2018-06-06] MEDS: amLODIPine BESYLATE 5 MG TABLET PO SCH (07:25)
[2018-06-06] MEDS: LISINOPRIL 20 MG TABLET PO SCH (07:26)
[2018-06-06] MEDS: LACTOBACILLUS RHAMNOSUS GG 1 CAPSULE. PO SCH ×2 (07:26→19:54)
[2018-06-06] MEDS: SERTRALINE 50 MG TABLET. PO SCH (07:26)
[2018-06-06] MEDS: TAMSULOSIN 0.4 MG CAP.ER.24H. PO SCH (07:27)
[2018-06-06] MEDS: metFORMIN 500 MG TABLET PO SCH ×2 (07:27→16:59)
[2018-06-06] MEDS: SMZ/TMP 800/160MG TABLET. PO SCH ×2 (07:27→19:54)
[2018-06-06] MEDS: IPRATROPIUM BROMIDE 0.06% NASAL SPRAY 15ML BOTTLE NS SCH ×2 (07:28→21:00)
[2018-06-06 16:08] VITALS: BP 98/51
[2018-06-06] MEDS: QUEtiapine 25 MG TABLET. PO SCH (19:53)
[2018-06-06] MEDS: DONEPEZIL HCL 10 MG TABLET PO SCH (19:54)
--- NOTE | 2018-06-07 00:01 | PN ---
DATE: 06/05/2018 PSYCHIATRIC PROGRESS NOTE This is a late entry, 06/05, covers elements not covered in my initial note. SUBJECTIVE: I met with the patient in the evening. The patient remains quite confused, but pleasant, cooperative, ambulates on his own. REVIEW OF SYSTEMS: No CV, , pulmonary, eye, ENT system symptoms on review. He slept 8-1/4 hours. MENTAL STATUS EXAM: Oriented to himself. Insight, judgment, recent and remote memory, attention, concentration, fund of knowledge poor, consistent with his diagnosis. IMPRESSION: Unchanged from initial note. PLAN: No change from initial note. He is hard of hearing. MAN Wayne CASTANO MD DR: HUNG/arianne JOB#: [id number] / [id number]
--- NOTE | 2018-06-07 02:38 | PDOC ---
Exam Note: Lucas Note: Please also refer to the separate dictated note~for this date of service dictated separately.~Patient seen individually. Discussed the patient with Nursing staff reviewed the chart.~Reviewed interim history and current functioning. Reviewed vital signs,~Labs/ Radiology~and current medications noted below. Continue current treatment with the changes noted in the dictated addendum note Assessment: Vital Signs: Vital Signs Date Time Temp Pulse Resp B/P (MAP) Pulse Ox O2 Delivery O2 Flow Rate FiO2 06/06/18 16:08 97.9 64 18 98/51 (67) 93 06/06/18 05:30 Room Air I&O Intake and Output 06/07/18 07:00 Intake Total 1060 ml Balance 1060 ml Intake Oral 1060 ml # Voids 1 Labs: Laboratory Tests Test 06/06/18 07:15 Glucose (Fingerstick) 81 mg/dL (70-99) Current Medications: Meds: Current Medications Acetaminophen (Tylenol) 650 mg PRN Q6HRS PRN PO PAIN / TEMP; Start 05/23/18 at 20:45 Multi-Ingredient Ointment (Analgesic [place]) 1 john PRN QID PRN TP MUSCLE PAIN; Start 05/23/18 at 20:45 Al Hydroxide/Mg Hydroxide (Mylanta Plus Xs) 15 ml PRN AFTMEALHC PRN PO DYSPEPSIA; Start 05/23/18 at 20:45 Magnesium Hydroxide (Milk Of Magnesia) 2,400 mg PRN QHS PRN PO CONSTIPATION; Start 05/23/18 at 20:45 Donepezil HCl (Aricept) 10 mg QHS PO Last administered on 06/06/18at 19:54; Start 05/23/18 at 21:00 Aspirin (Vivian Aspirin) 325 mg DAILY PO Last administered on 06/06/18at 07:24; Start 05/24/18 at 09:00 Furosemide (Lasix) 20 mg DAILY PO Last administered on 05/24/18at 09:54; Start at 09:00; Stop 05/24/18 at 11:14; Status DC Tamsulosin HCl (Flomax) 0.4 mg DAILY PO Last administered on 06/06/18at 07:27; Start 05/24/18 at 09:00 Atorvastatin Calcium (Lipitor) 40 mg DAILY PO Last administered on 06/06/18at 07 :24; Start 05/24/18 at 09:00 Lisinopril (Prinivil) 20 mg 05/23/18 PO Last administered on 05/24/18 09:55; Start 05/23/18 at 21:00; Stop 05/23/18 at 21:10; Status DC Ipratropium [place] (Atrovent Nasal) 2 spray BID NS Last administered on 21:00; Start 05/24/18 at 09:00 Levetiracetam (Keppra) 500 mg BID PO Last administered on 06/06/18 19:54; Start 05/23/18 at 21:00 Metformin HCl (Glucophage) 500 mg BIDWMEALS PO Last administered on 06/06/18 16:59; Start 05/24/18 at 08:00 Lisinopril (Prinivil) 20 mg DAILY PO Last administered on 06/06/18 07:26; Start 05/24/18 at 09:00 Amlodipine Besylate (Norvasc) 5 mg DAILY PO Last administered on 06/06/18 07: 25; Start 05/24/18 at 11:30 Nicotine (Nicoderm Cq 14mg) 1 patch DAILY TD Last administered on 06/06/18 07: 23; Start 05/24/18 at 11:30 Vitamin D (Vitamin D3) 50,000 unit WEEKLY PO Last administered on 06/01/18at 08: 00; Start 05/25/18 at 13:30 Sertraline HCl (Zoloft) 25 mg DAILY PO ; Start 05/26/18 at 09:00; Stop 05/26/18 at 19:55; Status DC Sertraline HCl (Zoloft) 50 mg DAILY PO Last administered on 06/06/18 07:26; Start 05/26/18 at 09:00 Quetiapine Fumarate (SEROquel) 25 mg QHS PO Last administered on 05/29/18 19:49 ; Start 05/25/18 at 21:00; Stop 05/30/18 at 16:30; Status DC Quetiapine Fumarate (SEROquel) 37.5 mg QHS PO Last administered on 06/06/18 19 :53; Start 05/30/18 at 21:00 Trimethoprim/ Sulfamethoxazole (Bactrim Ds) 1 tab BID PO Last administered on at 19:54; Start 05/31/18 at 21:00 Lactobacillus Rhamnosus (Culturelle) 1 cap BID PO Last administered on at 19:54; Start 06/04/18 at 21:00 Active Scripts Active Reported Aspirin 325 Mg Tablet 325 Mg PO DAILY Atorvastatin Calcium 40 Mg Tablet 40 Mg PO DAILY Benazepril Hcl 20 Mg Tablet 20 Mg PO QHS Donepezil Hcl 10 Mg Tablet 10 Mg PO QHS Furosemide 20 Mg Tablet 20 Mg PO DAILY Ipratropium [place] 30 Ml [place] 2 Spr NS BID Levetiracetam 500 Mg Tablet 500 Mg PO BID Metformin Hcl 500 Mg Tablet 500 Mg PO BIDWMEALS Tamsulosin Hcl 0.4 Mg Cap.er.24h 0.4 Mg PO DAILY I have reviewed the current psychotropics carefully including drug interactions. Risk benefit ratio favors no change other than as noted in my dictated progress note. Diagnosis: Problems: (1) Anxiety disorder (2) Dementia in Alzheimer's disease with delusions (3) Dementia in Alzheimer's disease with depression (4) Dementia, vascular, with delusions (5) Dementia, vascular, with depression (6) Impulse control disorder CHAPITO CASTANO MD Jun 07, 2018 02:38
[2018-06-07 06:09] VITALS: BP 135/61
[2018-06-07] MEDS: ASPIRIN 325 MG TABLET PO SCH (08:52)
[2018-06-07] MEDS: NICOTINE 14MG PATCH. TD SCH (08:52)
[2018-06-07] MEDS: TAMSULOSIN 0.4 MG CAP.ER.24H. PO SCH (08:53)
[2018-06-07] MEDS: ATORVASTATIN CALCIUM 20 MG TABLET PO SCH (08:53)
[2018-06-07] MEDS: levETIRAcetam 500 MG TABLET PO SCH ×2 (08:53→20:47)
[2018-06-07] MEDS: metFORMIN 500 MG TABLET PO SCH ×2 (08:53→17:40)
[2018-06-07] MEDS: SMZ/TMP 800/160MG TABLET. PO SCH ×2 (08:53→20:47)
[2018-06-07] MEDS: LISINOPRIL 20 MG TABLET PO SCH (08:53)
[2018-06-07] MEDS: amLODIPine BESYLATE 5 MG TABLET PO SCH (08:54)
[2018-06-07] MEDS: SERTRALINE 50 MG TABLET. PO SCH (08:54)
[2018-06-07] MEDS: LACTOBACILLUS RHAMNOSUS GG 1 CAPSULE. PO SCH ×2 (08:54→20:47)
[2018-06-07] MEDS: IPRATROPIUM BROMIDE 0.06% NASAL SPRAY 15ML BOTTLE NS SCH ×2 (08:55→20:49)
[2018-06-07 15:52] VITALS: BP 94/58
--- NOTE | 2018-06-07 20:07 | PDOC ---
Exam Note: Lucas Note: Please also refer to the separate dictated note~for this date of service dictated separately.~Patient seen individually. Discussed the patient with Nursing staff reviewed the chart.~Reviewed interim history and current functioning. Reviewed vital signs,~Labs/ Radiology~and current medications noted below. Continue current treatment with the changes noted in the dictated addendum note Assessment: Vital Signs: Vital Signs Date Time Temp Pulse Resp B/P (MAP) Pulse Ox O2 Delivery O2 Flow Rate FiO2 06/07/18 15:52 98.2 65 20 94/58 (70) 96 Room Air I&O Intake and Output 06/07/18 06:59 Intake Total 1060 ml Balance 1060 ml Intake Oral 1060 ml # Voids 1 Labs: Laboratory Tests Test 06/07/18 07:37 Glucose (Fingerstick) 91 mg/dL (70-99) Current Medications: Meds: Current Medications Acetaminophen (Tylenol) 650 mg PRN Q6HRS PRN PO PAIN / TEMP; Start 05/23/18 at 20:45 Multi-Ingredient Ointment (Analgesic [place]) 1 john PRN QID PRN TP MUSCLE PAIN; Start 05/23/18 at 20:45 Al Hydroxide/Mg Hydroxide (Mylanta Plus Xs) 15 ml PRN AFTMEALHC PRN PO DYSPEPSIA; Start 05/23/18 at 20:45 Magnesium Hydroxide (Milk Of Magnesia) 2,400 mg PRN QHS PRN PO CONSTIPATION; Start 05/23/18 at 20:45 Donepezil HCl (Aricept) 10 mg QHS PO Last administered on 06/06/18at 19:54; Start 05/23/18 at 21:00 Aspirin (Vivian Aspirin) 325 mg DAILY PO Last administered on 06/07/18at 08:52; Start 05/24/18 at 09:00 Furosemide (Lasix) 20 mg DAILY PO Last administered on 05/24/18at 09:54; Start at 09:00; Stop 05/24/18 at 11:14; Status DC Tamsulosin HCl (Flomax) 0.4 mg DAILY PO Last administered on 06/07/18at 08:53; Start 05/24/18 at 09:00 Atorvastatin Calcium (Lipitor) 40 mg DAILY PO Last administered on 06/07/18at 08 :53; Start 05/24/18 at 09:00 Lisinopril (Prinivil) 20 mg 05/23/18 PO Last administered on 05/24/18at 09:55; Start 05/23/18 at 21:00; Stop 05/23/18 at 21:10; Status DC Ipratropium [place] (Atrovent Nasal) 2 spray BID NS Last administered on at 08:55; Start 05/24/18 at 09:00 Levetiracetam (Keppra) 500 mg BID PO Last administered on 06/07/18at 08:53; Start 05/23/18 at 21:00 Metformin HCl (Glucophage) 500 mg BIDWMEALS PO Last administered on 06/07/18 17:40; Start 05/24/18 at 08:00 Lisinopril (Prinivil) 20 mg DAILY PO Last administered on 06/07/18 08:53; Start 05/24/18 at 09:00 Amlodipine Besylate (Norvasc) 5 mg DAILY PO Last administered on 06/07/18 08: 54; Start 05/24/18 at 11:30 Nicotine (Nicoderm Cq 14mg) 1 patch DAILY TD Last administered on 06/07/18 08: 52; Start 05/24/18 at 11:30 Vitamin D (Vitamin D3) 50,000 unit WEEKLY PO Last administered on 06/01/18at 08: 00; Start 05/25/18 at 13:30 Sertraline HCl (Zoloft) 25 mg DAILY PO ; Start 05/26/18 at 09:00; Stop 05/26/18 at 19:55; Status DC Sertraline HCl (Zoloft) 50 mg DAILY PO Last administered on 06/07/18at 08:54; Start 05/26/18 at 09:00 Quetiapine Fumarate (SEROquel) 25 mg QHS PO Last administered on 05/29/18at 19:49 ; Start 05/25/18 at 21:00; Stop 05/30/18 at 16:30; Status DC Quetiapine Fumarate (SEROquel) 37.5 mg QHS PO Last administered on 06/06/18at 19 :53; Start 05/30/18 at 21:00 Trimethoprim/ Sulfamethoxazole (Bactrim Ds) 1 tab BID PO Last administered on 8 /16/18at 08:53; Start 05/31/18 at 21:00; Stop 06/10/18 at 21:00 Lactobacillus Rhamnosus (Culturelle) 1 cap BID PO Last administered on at 08:54; Start 06/04/18 at 21:00 Active Scripts Active Reported Aspirin 325 Mg Tablet 325 Mg PO DAILY Atorvastatin Calcium 40 Mg Tablet 40 Mg PO DAILY Benazepril Hcl 20 Mg Tablet 20 Mg PO QHS Donepezil Hcl 10 Mg Tablet 10 Mg PO QHS Furosemide 20 Mg Tablet 20 Mg PO DAILY Ipratropium [place] 30 Ml [place] 2 Spr NS BID Levetiracetam 500 Mg Tablet 500 Mg PO BID Metformin Hcl 500 Mg Tablet 500 Mg PO BIDWMEALS Tamsulosin Hcl 0.4 Mg Cap.er.24h 0.4 Mg PO DAILY I have reviewed the current psychotropics carefully including drug interactions. Risk benefit ratio favors no change other than as noted in my dictated progress note. Diagnosis: Problems: (1) Anxiety disorder (2) Dementia in Alzheimer's disease with delusions (3) Dementia in Alzheimer's disease with depression (4) Dementia, vascular, with delusions (5) Dementia, vascular, with depression (6) Impulse control disorder CHAPITO CASTANO MD Jun 07, 2018 20:07
--- NOTE | 2018-06-07 20:42 | PDOC ---
Exam Note: Lucas Note: Late entry for DOS June 05, 2018. Please also refer to the separate dictated note~for this date of service dictated separately.~Patient seen individually. Discussed the patient with Nursing staff reviewed the chart.~Reviewed interim history and current functioning. Reviewed vital signs,~Labs/ Radiology~and current medications noted below. Continue current treatment with the changes noted in the dictated addendum note Assessment: Vital Signs: VS - Last 72 Hours, by Label Date Time Temp Pulse Resp B/P (MAP) Pulse Ox O2 Delivery O2 Flow Rate FiO2 06/07/18 15:52 98.2 65 20 94/58 (70) 96 Room Air 06/07/18 08:54 60 135/61 06/07/18 08:53 60 135/61 06/07/18 06:09 97.9 60 18 135/61 (85) 94 Room Air 06/06/18 16:08 97.9 64 18 98/51 (67) 93 06/06/18 07:26 53 126/60 06/06/18 07:25 53 126/60 06/06/18 05:30 97.8 53 18 126/60 (82) 94 Room Air 06/05/18 16:06 98.9 67 20 115/52 (73) 96 Room Air 06/05/18 07:39 66 176/68 06/05/18 07:38 66 176/68 06/05/18 05:59 98.6 66 16 176/68 (104) 98 Vital Signs Date Time Temp Pulse Resp B/P (MAP) Pulse Ox O2 Delivery O2 Flow Rate FiO2 06/07/18 15:52 98.2 65 20 94/58 (70) 96 Room Air I&O Intake and Output 06/07/18 06:59 Intake Total 1060 ml Balance 1060 ml Intake Oral 1060 ml # Voids 1 Labs: Laboratory Tests Test 06/07/18 07:37 Glucose (Fingerstick) 91 mg/dL (70-99) Current Medications: Meds: Current Medications Acetaminophen (Tylenol) 650 mg PRN Q6HRS PRN PO PAIN / TEMP; Start 05/23/18 at 20:45 Multi-Ingredient Ointment (Analgesic [place]) 1 john PRN QID PRN TP MUSCLE PAIN; Start 05/23/18 at 20:45 Al Hydroxide/Mg Hydroxide (Mylanta Plus Xs) 15 ml PRN AFTMEALHC PRN PO DYSPEPSIA; Start 05/23/18 at 20:45 Magnesium Hydroxide (Milk Of Magnesia) 2,400 mg PRN QHS PRN PO CONSTIPATION; Start 05/23/18 at 20:45 Donepezil HCl (Aricept) 10 mg QHS PO Last administered on 06/06/18at 19:54; Start 05/23/18 at 21:00 Aspirin (Vivian Aspirin) 325 mg DAILY PO Last administered on 06/07/18 08:52; Start 05/24/18 at 09:00 Furosemide (Lasix) 20 mg DAILY PO Last administered on 05/24/18 09:54; Start at 09:00; Stop 05/24/18 at 11:14; Status DC Tamsulosin HCl (Flomax) 0.4 mg DAILY PO Last administered on 06/07/18 08:53; Start 05/24/18 at 09:00 Atorvastatin Calcium (Lipitor) 40 mg DAILY PO Last administered on 06/07/18 08 :53; Start 05/24/18 at 09:00 Lisinopril (Prinivil) 20 mg 05/23/18 PO Last administered on 05/24/18 09:55; Start 05/23/18 at 21:00; Stop 05/23/18 at 21:10; Status DC Ipratropium [place] (Atrovent Nasal) 2 spray BID NS Last administered on 08:55; Start 05/24/18 at 09:00 Levetiracetam (Keppra) 500 mg BID PO Last administered on 06/07/18 08:53; Start 05/23/18 at 21:00 Metformin HCl (Glucophage) 500 mg BIDWMEALS PO Last administered on 06/07/18 17:40; Start 05/24/18 at 08:00 Lisinopril (Prinivil) 20 mg DAILY PO Last administered on 06/07/18 08:53; Start 05/24/18 at 09:00 Amlodipine Besylate (Norvasc) 5 mg DAILY PO Last administered on 06/07/18 08: 54; Start 05/24/18 at 11:30 Nicotine (Nicoderm Cq 14mg) 1 patch DAILY TD Last administered on 8/16/18at 08: 52; Start 05/24/18 at 11:30 Vitamin D (Vitamin D3) 50,000 unit WEEKLY PO Last administered on 06/01/18at 08: 00; Start 05/25/18 at 13:30 Sertraline HCl (Zoloft) 25 mg DAILY PO ; Start 05/26/18 at 09:00; Stop 05/26/18 at 19:55; Status DC Sertraline HCl (Zoloft) 50 mg DAILY PO Last administered on 06/07/18at 08:54; Start 05/26/18 at 09:00 Quetiapine Fumarate (SEROquel) 25 mg QHS PO Last administered on 05/29/18at 19:49 ; Start 05/25/18 at 21:00; Stop 05/30/18 at 16:30; Status DC Quetiapine Fumarate (SEROquel) 37.5 mg QHS PO Last administered on 06/06/18at 19 :53; Start 05/30/18 at 21:00 Trimethoprim/ Sulfamethoxazole (Bactrim Ds) 1 tab BID PO Last administered on at 08:53; Start 05/31/18 at 21:00; Stop 06/10/18 at 21:00 Lactobacillus Rhamnosus (Culturelle) 1 cap BID PO Last administered on at 08:54; Start 06/04/18 at 21:00 Active Scripts Active Reported Aspirin 325 Mg Tablet 325 Mg PO DAILY Atorvastatin Calcium 40 Mg Tablet 40 Mg PO DAILY Benazepril Hcl 20 Mg Tablet 20 Mg PO QHS Donepezil Hcl 10 Mg Tablet 10 Mg PO QHS Furosemide 20 Mg Tablet 20 Mg PO DAILY Ipratropium [place] 30 Ml [place] 2 Spr NS BID Levetiracetam 500 Mg Tablet 500 Mg PO BID Metformin Hcl 500 Mg Tablet 500 Mg PO BIDWMEALS Tamsulosin Hcl 0.4 Mg Cap.er.24h 0.4 Mg PO DAILY I have reviewed the current psychotropics carefully including drug interactions. Risk benefit ratio favors no change other than as noted in my dictated progress note. Diagnosis: Problems: (1) Anxiety disorder (2) Dementia in Alzheimer's disease with delusions (3) Dementia in Alzheimer's disease with depression (4) Dementia, vascular, with delusions (5) Dementia, vascular, with depression (6) Impulse control disorder CHAPITO CASTANO MD Jun 07, 2018 20:42
[2018-06-07] MEDS: DONEPEZIL HCL 10 MG TABLET PO SCH (20:47)
[2018-06-07] MEDS: QUEtiapine 25 MG TABLET. PO SCH (20:48)
--- NOTE | 2018-06-07 21:06 | PDOC ---
Exam Note: Lucas Note: Late entry for DOS June 06, 2018. Please also refer to the separate dictated note~for this date of service dictated separately.~Patient seen individually. Discussed the patient with Nursing staff reviewed the chart.~Reviewed interim history and current functioning. Reviewed vital signs,~Labs/ Radiology~and current medications noted below. Continue current treatment with the changes noted in the dictated addendum note Assessment: Vital Signs: VS - Last 72 Hours, by Label Date Time Temp Pulse Resp B/P (MAP) Pulse Ox O2 Delivery O2 Flow Rate FiO2 06/07/18 15:52 98.2 65 20 94/58 (70) 96 Room Air 06/07/18 08:54 60 135/61 06/07/18 08:53 60 135/61 06/07/18 06:09 97.9 60 18 135/61 (85) 94 Room Air 06/06/18 16:08 97.9 64 18 98/51 (67) 93 06/06/18 07:26 53 126/60 06/06/18 07:25 53 126/60 06/06/18 05:30 97.8 53 18 126/60 (82) 94 Room Air 06/05/18 16:06 98.9 67 20 115/52 (73) 96 Room Air 06/05/18 07:39 66 176/68 06/05/18 07:38 66 176/68 06/05/18 05:59 98.6 66 16 176/68 (104) 98 Vital Signs Date Time Temp Pulse Resp B/P (MAP) Pulse Ox O2 Delivery O2 Flow Rate FiO2 06/07/18 15:52 98.2 65 20 94/58 (70) 96 Room Air I&O Intake and Output 06/07/18 06:59 Intake Total 1060 ml Balance 1060 ml Intake Oral 1060 ml # Voids 1 Labs: Laboratory Tests Test 06/07/18 07:37 Glucose (Fingerstick) 91 mg/dL (70-99) Current Medications: Meds: Current Medications Acetaminophen (Tylenol) 650 mg PRN Q6HRS PRN PO PAIN / TEMP; Start 05/23/18 at 20:45 Multi-Ingredient Ointment (Analgesic [place]) 1 john PRN QID PRN TP MUSCLE PAIN; Start 05/23/18 at 20:45 Al Hydroxide/Mg Hydroxide (Mylanta Plus Xs) 15 ml PRN AFTMEALHC PRN PO DYSPEPSIA; Start 05/23/18 at 20:45 Magnesium Hydroxide (Milk Of Magnesia) 2,400 mg PRN QHS PRN PO CONSTIPATION; Start 05/23/18 at 20:45 Donepezil HCl (Aricept) 10 mg QHS PO Last administered on 06/07/18at 20:47; Start 05/23/18 at 21:00 Aspirin (Vivian Aspirin) 325 mg DAILY PO Last administered on 06/07/18 08:52; Start 05/24/18 at 09:00 Furosemide (Lasix) 20 mg DAILY PO Last administered on 05/24/18 09:54; Start at 09:00; Stop 05/24/18 at 11:14; Status DC Tamsulosin HCl (Flomax) 0.4 mg DAILY PO Last administered on 06/07/18 08:53; Start 05/24/18 at 09:00 Atorvastatin Calcium (Lipitor) 40 mg DAILY PO Last administered on 06/07/18 08 :53; Start 05/24/18 at 09:00 Lisinopril (Prinivil) 20 mg 05/23/18 PO Last administered on 05/24/18 09:55; Start 05/23/18 at 21:00; Stop 05/23/18 at 21:10; Status DC Ipratropium [place] (Atrovent Nasal) 2 spray BID NS Last administered on 20:49; Start 05/24/18 at 09:00 Levetiracetam (Keppra) 500 mg BID PO Last administered on 06/07/18 20:47; Start 05/23/18 at 21:00 Metformin HCl (Glucophage) 500 mg BIDWMEALS PO Last administered on 06/07/18 17:40; Start 05/24/18 at 08:00 Lisinopril (Prinivil) 20 mg DAILY PO Last administered on 06/07/18 08:53; Start 05/24/18 at 09:00 Amlodipine Besylate (Norvasc) 5 mg DAILY PO Last administered on 06/07/18 08: 54; Start 05/24/18 at 11:30 Nicotine (Nicoderm Cq 14mg) 1 patch DAILY TD Last administered on 8/16/18at 08: 52; Start 05/24/18 at 11:30 Vitamin D (Vitamin D3) 50,000 unit WEEKLY PO Last administered on 06/01/18at 08: 00; Start 05/25/18 at 13:30 Sertraline HCl (Zoloft) 25 mg DAILY PO ; Start 05/26/18 at 09:00; Stop 05/26/18 at 19:55; Status DC Sertraline HCl (Zoloft) 50 mg DAILY PO Last administered on 06/07/18at 08:54; Start 05/26/18 at 09:00 Quetiapine Fumarate (SEROquel) 25 mg QHS PO Last administered on 05/29/18at 19:49 ; Start 05/25/18 at 21:00; Stop 05/30/18 at 16:30; Status DC Quetiapine Fumarate (SEROquel) 37.5 mg QHS PO Last administered on 06/07/18at 20 :48; Start 05/30/18 at 21:00 Trimethoprim/ Sulfamethoxazole (Bactrim Ds) 1 tab BID PO Last administered on at 20:47; Start 05/31/18 at 21:00; Stop 06/10/18 at 21:00 Lactobacillus Rhamnosus (Culturelle) 1 cap BID PO Last administered on at 20:47; Start 06/04/18 at 21:00 Active Scripts Active Reported Aspirin 325 Mg Tablet 325 Mg PO DAILY Atorvastatin Calcium 40 Mg Tablet 40 Mg PO DAILY Benazepril Hcl 20 Mg Tablet 20 Mg PO QHS Donepezil Hcl 10 Mg Tablet 10 Mg PO QHS Furosemide 20 Mg Tablet 20 Mg PO DAILY Ipratropium [place] 30 Ml [place] 2 Spr NS BID Levetiracetam 500 Mg Tablet 500 Mg PO BID Metformin Hcl 500 Mg Tablet 500 Mg PO BIDWMEALS Tamsulosin Hcl 0.4 Mg Cap.er.24h 0.4 Mg PO DAILY I have reviewed the current psychotropics carefully including drug interactions. Risk benefit ratio favors no change other than as noted in my dictated progress note. Diagnosis: Problems: (1) Anxiety disorder (2) Dementia in Alzheimer's disease with delusions (3) Dementia in Alzheimer's disease with depression (4) Dementia, vascular, with delusions (5) Dementia, vascular, with depression (6) Impulse control disorder CHAPITO CASTANO MD Jun 07, 2018 21:06
--- NOTE | 2018-06-07 21:29 | PN ---
DATE: 06/06/2018 PSYCHIATRIC PROGRESS NOTE This is a late entry 06/06/2018, covers elements not covered in my initial note. SUBJECTIVE: I met with the patient in the evening. The patient has done reasonably well, appears somewhat tired, very confused, but pleasant. I met with him in his room. REVIEW OF SYSTEMS: No CV, , pulmonary, eye, ENT system symptoms on review. Reliability poor. MENTAL STATUS EXAM: Oriented to himself. Insight, judgment, recent and remote memory, attention, concentration, fund of knowledge poor, consistent with his diagnosis. He is not obsessed about wanting smoking breaks and seems to be tolerating the nicotine patch reasonably well. LABORATORY DATA: Reviewed. IMPRESSION: Unchanged from initial note. PLAN: No change from initial note. MAN Wayne CASTANO MD DR: HUNG/arianne JOB#: [id number] / [id number]
--- NOTE | 2018-06-08 01:11 | PDOC ---
Exam Note: Lucas Note: Please also refer to the separate dictated note~for this date of service dictated separately.~Patient seen individually. Discussed the patient with Nursing staff reviewed the chart.~Reviewed interim history and current functioning. Reviewed vital signs,~Labs/ Radiology~and current medications noted below. Continue current treatment with the changes noted in the dictated addendum note Assessment: Vital Signs: Vital Signs Date Time Temp Pulse Resp B/P (MAP) Pulse Ox O2 Delivery O2 Flow Rate FiO2 06/07/18 15:52 98.2 65 20 94/58 (70) 96 Room Air I&O Intake and Output 06/08/18 07:00 Intake Total 960 ml Balance 960 ml Intake Oral 960 ml Labs: Laboratory Tests Test 06/07/18 07:37 Glucose (Fingerstick) 91 mg/dL (70-99) Current Medications: Meds: Current Medications Acetaminophen (Tylenol) 650 mg PRN Q6HRS PRN PO PAIN / TEMP; Start 05/23/18 at 20:45 Multi-Ingredient Ointment (Analgesic [place]) 1 john PRN QID PRN TP MUSCLE PAIN; Start 05/23/18 at 20:45 Al Hydroxide/Mg Hydroxide (Mylanta Plus Xs) 15 ml PRN AFTMEALHC PRN PO DYSPEPSIA; Start 05/23/18 at 20:45 Magnesium Hydroxide (Milk Of Magnesia) 2,400 mg PRN QHS PRN PO CONSTIPATION; Start 05/23/18 at 20:45 Donepezil HCl (Aricept) 10 mg QHS PO Last administered on 06/07/18at 20:47; Start 05/23/18 at 21:00 Aspirin (Vivian Aspirin) 325 mg DAILY PO Last administered on 06/07/18at 08:52; Start 05/24/18 at 09:00 Furosemide (Lasix) 20 mg DAILY PO Last administered on 05/24/18at 09:54; Start at 09:00; Stop 05/24/18 at 11:14; Status DC Tamsulosin HCl (Flomax) 0.4 mg DAILY PO Last administered on 06/07/18at 08:53; Start 05/24/18 at 09:00 Atorvastatin Calcium (Lipitor) 40 mg DAILY PO Last administered on 06/07/18at 08 :53; Start 05/24/18 at 09:00 Lisinopril (Prinivil) 20 mg 05/23/18 PO Last administered on 05/24/18 09:55; Start 05/23/18 at 21:00; Stop 05/23/18 at 21:10; Status DC Ipratropium [place] (Atrovent Nasal) 2 spray BID NS Last administered on at 20:49; Start 05/24/18 at 09:00 Levetiracetam (Keppra) 500 mg BID PO Last administered on 06/07/18at 20:47; Start 05/23/18 at 21:00 Metformin HCl (Glucophage) 500 mg BIDWMEALS PO Last administered on 06/07/18 17:40; Start 05/24/18 at 08:00 Lisinopril (Prinivil) 20 mg DAILY PO Last administered on 06/07/18 08:53; Start 05/24/18 at 09:00 Amlodipine Besylate (Norvasc) 5 mg DAILY PO Last administered on 06/07/18 08: 54; Start 05/24/18 at 11:30 Nicotine (Nicoderm Cq 14mg) 1 patch DAILY TD Last administered on 06/07/18 08: 52; Start 05/24/18 at 11:30 Vitamin D (Vitamin D3) 50,000 unit WEEKLY PO Last administered on 06/01/18at 08: 00; Start 05/25/18 at 13:30 Sertraline HCl (Zoloft) 25 mg DAILY PO ; Start 05/26/18 at 09:00; Stop 05/26/18 at 19:55; Status DC Sertraline HCl (Zoloft) 50 mg DAILY PO Last administered on 06/07/18at 08:54; Start 05/26/18 at 09:00 Quetiapine Fumarate (SEROquel) 25 mg QHS PO Last administered on 05/29/18 19:49 ; Start 05/25/18 at 21:00; Stop 05/30/18 at 16:30; Status DC Quetiapine Fumarate (SEROquel) 37.5 mg QHS PO Last administered on 06/07/18at 20 :48; Start 05/30/18 at 21:00 Trimethoprim/ Sulfamethoxazole (Bactrim Ds) 1 tab BID PO Last administered on at 20:47; Start 05/31/18 at 21:00; Stop 06/10/18 at 21:00 Lactobacillus Rhamnosus (Culturelle) 1 cap BID PO Last administered on at 20:47; Start 06/04/18 at 21:00 Active Scripts Active Reported Aspirin 325 Mg Tablet 325 Mg PO DAILY Atorvastatin Calcium 40 Mg Tablet 40 Mg PO DAILY Benazepril Hcl 20 Mg Tablet 20 Mg PO QHS Donepezil Hcl 10 Mg Tablet 10 Mg PO QHS Furosemide 20 Mg Tablet 20 Mg PO DAILY Ipratropium [place] 30 Ml [place] 2 Spr NS BID Levetiracetam 500 Mg Tablet 500 Mg PO BID Metformin Hcl 500 Mg Tablet 500 Mg PO BIDWMEALS Tamsulosin Hcl 0.4 Mg Cap.er.24h 0.4 Mg PO DAILY I have reviewed the current psychotropics carefully including drug interactions. Risk benefit ratio favors no change other than as noted in my dictated progress note. Diagnosis: Problems: (1) Anxiety disorder (2) Dementia in Alzheimer's disease with delusions (3) Dementia in Alzheimer's disease with depression (4) Dementia, vascular, with delusions (5) Dementia, vascular, with depression (6) Impulse control disorder CHAPITO CASTANO MD Jun 08, 2018 01:11
[2018-06-08 05:50] VITALS: BP 138/64
[2018-06-08 06:37] LABS: BASO # 0.1 x10^3/uL (0.0-0.2); BASO % 1 % (0-3); EOS # 0.1 x10^3/uL (0.0-0.7); EOS % 2 % (0-3); HEMOGLOBIN 12.6 g/dL (13.0-17.5); LYMPH # 1.9 x10^3/uL (1.0-4.8); LYMPH % 22 % (24-48); MEAN CORPUSCULAR HEMOGLOBIN 33 pg (25-35); MEAN CORPUSCULAR HGB CONC 34 g/dL (31-37); MEAN CORPUSCULAR VOLUME 96 fL (79-100); MONO # 0.7 x10^3/uL (0.0-1.1); MONO % 8 % (0-9); NEUT # 5.8 x10^3uL (1.8-7.7); NEUT % 67 % (31-73); PLATELET COUNT 348 x10^3/uL (140-400); RED BLOOD COUNT 3.87 x10^6/uL (4.30-5.70); RED CELL DISTRIBUTION WIDTH 13.5 % (11.5-14.5); WHITE BLOOD COUNT 8.6 x10^3/uL (4.0-11.0)
[2018-06-08 06:40] LABS: ALBUMIN 3.6 g/dL (3.4-5.0); ALBUMIN/GLOBULIN RATIO 1.2 (1.0-1.7); GFR 71.9; POTASSIUM 4.4 mmol/L (3.5-5.1); TOTAL BILIRUBIN 0.4 mg/dL (0.2-1.0); TOTAL PROTEIN 6.5 g/dL (6.4-8.2)
[2018-06-08] MEDS: amLODIPine BESYLATE 5 MG TABLET PO SCH (08:02)
[2018-06-08] MEDS: levETIRAcetam 500 MG TABLET PO SCH ×2 (08:02→19:32)
[2018-06-08] MEDS: ASPIRIN 325 MG TABLET PO SCH (08:02)
[2018-06-08] MEDS: NICOTINE 14MG PATCH. TD SCH (08:02)
[2018-06-08] MEDS: TAMSULOSIN 0.4 MG CAP.ER.24H. PO SCH (08:03)
[2018-06-08] MEDS: SMZ/TMP 800/160MG TABLET. PO SCH ×2 (08:03→19:32)
[2018-06-08] MEDS: ATORVASTATIN CALCIUM 20 MG TABLET PO SCH (08:03)
[2018-06-08] MEDS: LISINOPRIL 20 MG TABLET PO SCH (08:03)
[2018-06-08] MEDS: metFORMIN 500 MG TABLET PO SCH ×2 (08:03→17:35)
[2018-06-08] MEDS: LACTOBACILLUS RHAMNOSUS GG 1 CAPSULE. PO SCH ×2 (08:03→19:32)
[2018-06-08] MEDS: SERTRALINE 50 MG TABLET. PO SCH (08:04)
[2018-06-08] MEDS: IPRATROPIUM BROMIDE 0.06% NASAL SPRAY 15ML BOTTLE NS SCH ×2 (08:04→19:33)
[2018-06-08] MEDS: CHOLECALCIFEROL (VITAMIN D3) 50,000 UNIT CAPSULE PO SCH (08:04)
--- NOTE | 2018-06-08 12:11 | PN ---
DATE: 06/07/2018 PSYCHIATRIC PROGRESS NOTE This is a late entry, 06/07, covers elements not covered in my initial note. SUBJECTIVE: I met with the patient in the evening of 06/07 and staffed at treatment team meeting with the entire team morning of 06/07 and patient's , Sho, attended the treatment team meeting. Reviewed the patient's history, diagnosis, progress, medications, discharge plans. He enjoys playing cards as shared by his and activity therapy will incorporate that in his plans. He has been accepted at [facility] with disposition plans for early next week. He has been cooperative, confused. Sleep and appetite are fair. REVIEW OF SYSTEMS: No CV, , pulmonary, eye, ENT system symptoms on review. Reliability poor. MENTAL STATUS EXAM: Oriented to himself. Insight, judgment, recent and remote memory, attention, concentration, fund of knowledge poor, consistent with his diagnosis mentioned in my initial note. PLAN: No change from initial note. UTI is being treated on Bactrim. MAN Wayne CASTANO MD DR: HUNG/arianne JOB#: [id number] / [id number]
[2018-06-08 15:46] VITALS: BP 114/66
[2018-06-08] MEDS: QUEtiapine 25 MG TABLET. PO SCH (19:31)
[2018-06-08] MEDS: DONEPEZIL HCL 10 MG TABLET PO SCH (19:32)
--- NOTE | 2018-06-08 20:15 | PDOC ---
Exam Note: Lucas Note: Please also refer to the separate dictated note~for this date of service dictated separately.~Patient seen individually. Discussed the patient with Nursing staff reviewed the chart.~Reviewed interim history and current functioning. Reviewed vital signs,~Labs/ Radiology~and current medications noted below. Continue current treatment with the changes noted in the dictated addendum note Assessment: Vital Signs: Vital Signs Date Time Temp Pulse Resp B/P (MAP) Pulse Ox O2 Delivery O2 Flow Rate FiO2 06/08/18 15:46 98.5 60 22 114/66 (82) 95 Room Air I&O Intake and Output 06/08/18 06:59 Intake Total 960 ml Balance 960 ml Intake Oral 960 ml Labs: Laboratory Tests Test 06/08/18 06:14 06/08/18 07:15 White Blood Count 8.6 x10^3/uL (4.0-11.0) Red Blood Count 3.87 x10^6/uL (4.30-5.70) L Hemoglobin 12.6 g/dL (13.0-17.5) L Hematocrit 37.0 % (39.0-53.0) L Mean Corpuscular Volume 96 fL (79-100) Mean Corpuscular Hemoglobin 33 pg (25-35) Mean Corpuscular Hemoglobin Concent 34 g/dL (31-37) Red Cell Distribution Width 13.5 % (11.5-14.5) Platelet Count 348 x10^3/uL (140-400) Neutrophils (%) (Auto) 67 % (31-73) Lymphocytes (%) (Auto) 22 % (24-48) L Monocytes (%) (Auto) 8 % (0-9) Eosinophils (%) (Auto) 2 % (0-3) Basophils (%) (Auto) 1 % (0-3) Neutrophils # (Auto) 5.8 x10^3uL (1.8-7.7) Lymphocytes # (Auto) 1.9 x10^3/uL (1.0-4.8) Monocytes # (Auto) 0.7 x10^3/uL (0.0-1.1) Eosinophils # (Auto) 0.1 x10^3/uL (0.0-0.7) Basophils # (Auto) 0.1 x10^3/uL (0.0-0.2) Sodium Level 138 mmol/L (136-145) Potassium Level 4.4 mmol/L (3.5-5.1) Chloride Level 103 mmol/L (98-107) Carbon Dioxide Level 30 mmol/L (21-32) Anion Gap 5 (6-14) L Blood Urea Nitrogen 23 mg/dL (8-26) Creatinine 1.0 mg/dL (0.7-1.3) Estimated GFR (Cockcroft-Gault) 71.9 BUN/Creatinine Ratio 23 (6-20) H Glucose Level 97 mg/dL (70-99) Calcium Level 9.0 mg/dL (8.5-10.1) Magnesium Level 2.0 mg/dL (1.8-2.4) Total Bilirubin 0.4 mg/dL (0.2-1.0) Aspartate Amino Transferase (AST) 25 U/L (15-37) Alanine Aminotransferase (ALT) 44 U/L (16-63) Alkaline Phosphatase 97 U/L (46-116) Total Protein 6.5 g/dL (6.4-8.2) Albumin 3.6 g/dL (3.4-5.0) Albumin/Globulin Ratio 1.2 (1.0-1.7) Glucose (Fingerstick) 85 mg/dL (70-99) Current Medications: Meds: Current Medications Acetaminophen (Tylenol) 650 mg PRN Q6HRS PRN PO PAIN / TEMP; Start 05/23/18 at 20:45 Multi-Ingredient Ointment (Analgesic [place]) 1 john PRN QID PRN TP MUSCLE PAIN; Start 05/23/18 at 20:45 Al Hydroxide/Mg Hydroxide (Mylanta Plus Xs) 15 ml PRN AFTMEALHC PRN PO DYSPEPSIA; Start 05/23/18 at 20:45 Magnesium Hydroxide (Milk Of Magnesia) 2,400 mg PRN QHS PRN PO CONSTIPATION; Start 05/23/18 at 20:45 Donepezil HCl (Aricept) 10 mg QHS PO Last administered on 06/08/18at 19:32; Start 05/23/18 at 21:00 Aspirin (Vivian Aspirin) 325 mg DAILY PO Last administered on 06/08/18at 08:02; Start 05/24/18 at 09:00 Furosemide (Lasix) 20 mg DAILY PO Last administered on 05/24/18at 09:54; Start at 09:00; Stop 05/24/18 at 11:14; Status DC Tamsulosin HCl (Flomax) 0.4 mg DAILY PO Last administered on 06/08/18at 08:03; Start 05/24/18 at 09:00 Atorvastatin Calcium (Lipitor) 40 mg DAILY PO Last administered on 06/08/18at 08 :03; Start 05/24/18 at 09:00 Lisinopril (Prinivil) 20 mg 05/23/18 PO Last administered on 05/24/18at 09:55; Start 05/23/18 at 21:00; Stop 05/23/18 at 21:10; Status DC Ipratropium [place] (Atrovent Nasal) 2 spray BID NS Last administered on at 19:33; Start 05/24/18 at 09:00 Levetiracetam (Keppra) 500 mg BID PO Last administered on 06/08/18at 19:32; Start 05/23/18 at 21:00 Metformin HCl (Glucophage) 500 mg BIDWMEALS PO Last administered on 06/08/18at 17:35; Start 05/24/18 at 08:00 Lisinopril (Prinivil) 20 mg DAILY PO Last administered on 06/08/18at 08:03; Start 05/24/18 at 09:00 Amlodipine Besylate (Norvasc) 5 mg DAILY PO Last administered on 06/08/18at 08: 02; Start 05/24/18 at 11:30 Nicotine (Nicoderm Cq 14mg) 1 patch DAILY TD Last administered on 06/08/18at 08: 02; Start 05/24/18 at 11:30 Vitamin D (Vitamin D3) 50,000 unit WEEKLY PO Last administered on 06/08/18at 08: 04; Start 05/25/18 at 13:30 Sertraline HCl (Zoloft) 25 mg DAILY PO ; Start 05/26/18 at 09:00; Stop 05/26/18 at 19:55; Status DC Sertraline HCl (Zoloft) 50 mg DAILY PO Last administered on 06/08/18at 08:04; Start 05/26/18 at 09:00 Quetiapine Fumarate (SEROquel) 25 mg QHS PO Last administered on 05/29/18at 19:49 ; Start 05/25/18 at 21:00; Stop 05/30/18 at 16:30; Status DC Quetiapine Fumarate (SEROquel) 37.5 mg QHS PO Last administered on 06/08/18 19 :31; Start 05/30/18 at 21:00 Trimethoprim/ Sulfamethoxazole (Bactrim Ds) 1 tab BID PO Last administered on 19:32; Start 05/31/18 at 21:00; Stop 06/10/18 at 21:00 Lactobacillus Rhamnosus (Culturelle) 1 cap BID PO Last administered on 19:32; Start 06/04/18 at 21:00 Active Scripts Active Reported Aspirin 325 Mg Tablet 325 Mg PO DAILY Atorvastatin Calcium 40 Mg Tablet 40 Mg PO DAILY Benazepril Hcl 20 Mg Tablet 20 Mg PO QHS Donepezil Hcl 10 Mg Tablet 10 Mg PO QHS Furosemide 20 Mg Tablet 20 Mg PO DAILY Ipratropium [place] 30 Ml [place] 2 Spr NS BID Levetiracetam 500 Mg Tablet 500 Mg PO BID Metformin Hcl 500 Mg Tablet 500 Mg PO BIDWMEALS Tamsulosin Hcl 0.4 Mg Cap.er.24h 0.4 Mg PO DAILY I have reviewed the current psychotropics carefully including drug interactions. Risk benefit ratio favors no change other than as noted in my dictated progress note. Diagnosis: Problems: (1) Anxiety disorder (2) Dementia in Alzheimer's disease with delusions (3) Dementia in Alzheimer's disease with depression (4) Dementia, vascular, with delusions (5) Dementia, vascular, with depression (6) Impulse control disorder CHAPITO CASTANO MD Jun 08, 2018 20:15
[2018-06-09 05:39] VITALS: BP 112/69
[2018-06-09] MEDS: ASPIRIN 325 MG TABLET PO SCH (08:12)
[2018-06-09] MEDS: LACTOBACILLUS RHAMNOSUS GG 1 CAPSULE. PO SCH ×2 (08:12→19:58)
[2018-06-09] MEDS: SMZ/TMP 800/160MG TABLET. PO SCH ×2 (08:12→19:59)
[2018-06-09] MEDS: TAMSULOSIN 0.4 MG CAP.ER.24H. PO SCH (08:12)
[2018-06-09] MEDS: metFORMIN 500 MG TABLET PO SCH ×2 (08:12→16:12)
[2018-06-09] MEDS: ATORVASTATIN CALCIUM 20 MG TABLET PO SCH (08:13)
[2018-06-09] MEDS: levETIRAcetam 500 MG TABLET PO SCH ×2 (08:13→19:58)
[2018-06-09] MEDS: SERTRALINE 50 MG TABLET. PO SCH (08:14)
[2018-06-09] MEDS: NICOTINE 14MG PATCH. TD SCH (08:14)
[2018-06-09] MEDS: IPRATROPIUM BROMIDE 0.06% NASAL SPRAY 15ML BOTTLE NS SCH ×2 (08:22→19:58)
[2018-06-09] MEDS: amLODIPine BESYLATE 5 MG TABLET PO SCH (10:29)
[2018-06-09] MEDS: LISINOPRIL 20 MG TABLET PO SCH (10:29)
--- NOTE | 2018-06-09 10:33 | PN ---
DATE: 06/08/2018 PSYCHIATRIC PROGRESS NOTE This late entry 06/08/2018 covers elements not covered in my initial note. SUBJECTIVE: Met with the patient in the evening. Also had a message to return a call from the patient's daughter and I did call back and leave a detailed message on her voicemail about the patient's progress. I previously discussed the patient with the family at the treatment team meeting on 06/07/2018 with the patient's , Sho, attending the conference and discussed about the patient's transition to [facility] at discharge. REVIEW OF SYSTEMS: No CV, , pulmonary, eye, ENT system symptoms on review. He has not been aggressive, not fixated on wanting to smoke. MENTAL STATUS EXAM: Oriented to himself. Insight, judgment, recent and remote memory, attention, concentration, fund of knowledge poor, consistent with his diagnoses mentioned in my initial note. PLAN: No change from initial note. Transition to [facility] on Monday. CHAPITO CASTANO MD DR: HUNG/arianne JOB#: [id number] / [id number]
[2018-06-09 16:15] VITALS: BP 134/70
[2018-06-09] MEDS: DONEPEZIL HCL 10 MG TABLET PO SCH (19:58)
[2018-06-09] MEDS: QUEtiapine 25 MG TABLET. PO SCH (19:59)
--- NOTE | 2018-06-09 22:05 | PDOC ---
Exam Note: Lucas Note: Please also refer to the separate dictated note~for this date of service dictated separately.~Patient seen individually. Discussed the patient with Nursing staff reviewed the chart.~Reviewed interim history and current functioning. Reviewed vital signs,~Labs/ Radiology~and current medications noted below. Continue current treatment with the changes noted in the dictated addendum note Assessment: Vital Signs: Vital Signs Date Time Temp Pulse Resp B/P (MAP) Pulse Ox O2 Delivery O2 Flow Rate FiO2 06/09/18 16:15 98.3 61 18 134/70 (91) 96 06/08/18 15:46 Room Air I&O Intake and Output 06/09/18 07:01 Intake Total 1080 ml Balance 1080 ml Intake Oral 1080 ml Labs: Laboratory Tests Test 06/09/18 07:30 Glucose (Fingerstick) 91 mg/dL (70-99) Current Medications: Meds: Current Medications Acetaminophen (Tylenol) 650 mg PRN Q6HRS PRN PO PAIN / TEMP; Start 05/23/18 at 20:45 Multi-Ingredient Ointment (Analgesic [place]) 1 john PRN QID PRN TP MUSCLE PAIN; Start 05/23/18 at 20:45 Al Hydroxide/Mg Hydroxide (Mylanta Plus Xs) 15 ml PRN AFTMEALHC PRN PO DYSPEPSIA; Start 05/23/18 at 20:45 Magnesium Hydroxide (Milk Of Magnesia) 2,400 mg PRN QHS PRN PO CONSTIPATION; Start 05/23/18 at 20:45 Donepezil HCl (Aricept) 10 mg QHS PO Last administered on 06/09/18at 19:58; Start 05/23/18 at 21:00 Aspirin (Vivian Aspirin) 325 mg DAILY PO Last administered on 06/09/18at 08:12; Start 05/24/18 at 09:00 Furosemide (Lasix) 20 mg DAILY PO Last administered on 05/24/18at 09:54; Start at 09:00; Stop 05/24/18 at 11:14; Status DC Tamsulosin HCl (Flomax) 0.4 mg DAILY PO Last administered on 06/09/18at 08:12; Start 05/24/18 at 09:00 Atorvastatin Calcium (Lipitor) 40 mg DAILY PO Last administered on 06/09/18at 08 :13; Start 05/24/18 at 09:00 Lisinopril (Prinivil) 20 mg 05/23/18 PO Last administered on 05/24/18at 09:55; Start 05/23/18 at 21:00; Stop 05/23/18 at 21:10; Status DC Ipratropium [place] (Atrovent Nasal) 2 spray BID NS Last administered on 19:58; Start 05/24/18 at 09:00 Levetiracetam (Keppra) 500 mg BID PO Last administered on 06/09/18 19:58; Start 05/23/18 at 21:00 Metformin HCl (Glucophage) 500 mg BIDWMEALS PO Last administered on 06/09/18 16:12; Start 05/24/18 at 08:00 Lisinopril (Prinivil) 20 mg DAILY PO Last administered on 06/08/18at 08:03; Start 05/24/18 at 09:00 Amlodipine Besylate (Norvasc) 5 mg DAILY PO Last administered on 06/08/18at 08: 02; Start 05/24/18 at 11:30 Nicotine (Nicoderm Cq 14mg) 1 patch DAILY TD Last administered on 06/09/18 08: 14; Start 05/24/18 at 11:30 Vitamin D (Vitamin D3) 50,000 unit WEEKLY PO Last administered on 06/08/18at 08: 04; Start 05/25/18 at 13:30 Sertraline HCl (Zoloft) 25 mg DAILY PO ; Start 05/26/18 at 09:00; Stop 05/26/18 at 19:55; Status DC Sertraline HCl (Zoloft) 50 mg DAILY PO Last administered on 06/09/18at 08:14; Start 05/26/18 at 09:00 Quetiapine Fumarate (SEROquel) 25 mg QHS PO Last administered on 05/29/18at 19:49 ; Start 05/25/18 at 21:00; Stop 05/30/18 at 16:30; Status DC Quetiapine Fumarate (SEROquel) 37.5 mg QHS PO Last administered on 06/09/18at 19 :59; Start 05/30/18 at 21:00 Trimethoprim/ Sulfamethoxazole (Bactrim Ds) 1 tab BID PO Last administered on 8 /18/18at 19:59; Start 05/31/18 at 21:00; Stop 06/10/18 at 21:00 Lactobacillus Rhamnosus (Culturelle) 1 cap BID PO Last administered on at 19:58; Start 06/04/18 at 21:00 Active Scripts Active Reported Aspirin 325 Mg Tablet 325 Mg PO DAILY Atorvastatin Calcium 40 Mg Tablet 40 Mg PO DAILY Benazepril Hcl 20 Mg Tablet 20 Mg PO QHS Donepezil Hcl 10 Mg Tablet 10 Mg PO QHS Furosemide 20 Mg Tablet 20 Mg PO DAILY Ipratropium [place] 30 Ml [place] 2 Spr NS BID Levetiracetam 500 Mg Tablet 500 Mg PO BID Metformin Hcl 500 Mg Tablet 500 Mg PO BIDWMEALS Tamsulosin Hcl 0.4 Mg Cap.er.24h 0.4 Mg PO DAILY I have reviewed the current psychotropics carefully including drug interactions. Risk benefit ratio favors no change other than as noted in my dictated progress note. Diagnosis: Problems: (1) Anxiety disorder (2) Dementia in Alzheimer's disease with delusions (3) Dementia in Alzheimer's disease with depression (4) Dementia, vascular, with delusions (5) Dementia, vascular, with depression (6) Impulse control disorder CHAPITO CASTANO MD Jun 09, 2018 22:05
[2018-06-10 05:43] VITALS: BP 126/72
[2018-06-10] MEDS: TAMSULOSIN 0.4 MG CAP.ER.24H. PO SCH (07:52)
[2018-06-10] MEDS: ASPIRIN 325 MG TABLET PO SCH (07:52)
[2018-06-10] MEDS: levETIRAcetam 500 MG TABLET PO SCH ×2 (07:52→19:34)
[2018-06-10] MEDS: LACTOBACILLUS RHAMNOSUS GG 1 CAPSULE. PO SCH ×2 (07:52→19:34)
[2018-06-10] MEDS: SMZ/TMP 800/160MG TABLET. PO SCH ×2 (07:52→19:35)
[2018-06-10] MEDS: metFORMIN 500 MG TABLET PO SCH ×2 (07:52→17:11)
[2018-06-10] MEDS: ATORVASTATIN CALCIUM 20 MG TABLET PO SCH (07:53)
[2018-06-10] MEDS: amLODIPine BESYLATE 5 MG TABLET PO SCH (07:56)
[2018-06-10] MEDS: SERTRALINE 50 MG TABLET. PO SCH (07:57)
[2018-06-10] MEDS: NICOTINE 14MG PATCH. TD SCH (08:07)
[2018-06-10] MEDS: IPRATROPIUM BROMIDE 0.06% NASAL SPRAY 15ML BOTTLE NS SCH ×2 (09:00→19:36)
[2018-06-10] MEDS: LISINOPRIL 20 MG TABLET PO SCH (09:00)
[2018-06-10 16:06] VITALS: BP 120/59
[2018-06-10] MEDS: QUEtiapine 25 MG TABLET. PO SCH (19:35)
[2018-06-10] MEDS: DONEPEZIL HCL 10 MG TABLET PO SCH (19:35)
--- NOTE | 2018-06-10 20:44 | PDOC ---
Exam Note: Lucas Note: Please also refer to the separate dictated note~for this date of service dictated separately.~Patient seen individually. Discussed the patient with Nursing staff reviewed the chart.~Reviewed interim history and current functioning. Reviewed vital signs,~Labs/ Radiology~and current medications noted below. Continue current treatment with the changes noted in the dictated addendum note Assessment: Vital Signs: Vital Signs Date Time Temp Pulse Resp B/P (MAP) Pulse Ox O2 Delivery O2 Flow Rate FiO2 06/10/18 16:06 97.1 62 20 120/59 (79) 98 Room Air I&O Intake and Output 06/10/18 07:01 Intake Total 1200 ml Balance 1200 ml Intake Oral 1200 ml Labs: Laboratory Tests Test 06/10/18 07:31 Glucose (Fingerstick) 82 mg/dL (70-99) Current Medications: Meds: Current Medications Acetaminophen (Tylenol) 650 mg PRN Q6HRS PRN PO PAIN / TEMP; Start 05/23/18 at 20:45 Multi-Ingredient Ointment (Analgesic [place]) 1 john PRN QID PRN TP MUSCLE PAIN; Start 05/23/18 at 20:45 Al Hydroxide/Mg Hydroxide (Mylanta Plus Xs) 15 ml PRN AFTMEALHC PRN PO DYSPEPSIA; Start 05/23/18 at 20:45 Magnesium Hydroxide (Milk Of Magnesia) 2,400 mg PRN QHS PRN PO CONSTIPATION; Start 05/23/18 at 20:45 Donepezil HCl (Aricept) 10 mg QHS PO Last administered on 06/10/18at 19:35; Start 05/23/18 at 21:00 Aspirin (Vivian Aspirin) 325 mg DAILY PO Last administered on 06/10/18at 07:52; Start 05/24/18 at 09:00 Furosemide (Lasix) 20 mg DAILY PO Last administered on 05/24/18at 09:54; Start at 09:00; Stop 05/24/18 at 11:14; Status DC Tamsulosin HCl (Flomax) 0.4 mg DAILY PO Last administered on 06/10/18at 07:52; Start 05/24/18 at 09:00 Atorvastatin Calcium (Lipitor) 40 mg DAILY PO Last administered on 06/10/18at 07 :53; Start 05/24/18 at 09:00 Lisinopril (Prinivil) 20 mg 05/23/18 PO Last administered on 05/24/18at 09:55; Start 05/23/18 at 21:00; Stop 05/23/18 at 21:10; Status DC Ipratropium [place] (Atrovent Nasal) 2 spray BID NS Last administered on at 19:36; Start 05/24/18 at 09:00 Levetiracetam (Keppra) 500 mg BID PO Last administered on 06/10/18at 19:34; Start 05/23/18 at 21:00 Metformin HCl (Glucophage) 500 mg BIDWMEALS PO Last administered on 06/10/18at 17:11; Start 05/24/18 at 08:00 Lisinopril (Prinivil) 20 mg DAILY PO Last administered on 06/08/18at 08:03; Start 05/24/18 at 09:00 Amlodipine Besylate (Norvasc) 5 mg DAILY PO Last administered on 06/10/18at 07: 56; Start 05/24/18 at 11:30 Nicotine (Nicoderm Cq 14mg) 1 patch DAILY TD Last administered on 06/10/18at 08: 07; Start 05/24/18 at 11:30 Vitamin D (Vitamin D3) 50,000 unit WEEKLY PO Last administered on 06/08/18at 08: 04; Start 05/25/18 at 13:30 Sertraline HCl (Zoloft) 25 mg DAILY PO ; Start 05/26/18 at 09:00; Stop 05/26/18 at 19:55; Status DC Sertraline HCl (Zoloft) 50 mg DAILY PO Last administered on 06/10/18at 07:57; Start 05/26/18 at 09:00 Quetiapine Fumarate (SEROquel) 25 mg QHS PO Last administered on 05/29/18at 19:49 ; Start 05/25/18 at 21:00; Stop 05/30/18 at 16:30; Status DC Quetiapine Fumarate (SEROquel) 37.5 mg QHS PO Last administered on 06/10/18at 19 :35; Start 05/30/18 at 21:00 Trimethoprim/ Sulfamethoxazole (Bactrim Ds) 1 tab BID PO Last administered on 8 /19/18at 19:35; Start 05/31/18 at 21:00; Stop 06/10/18 at 21:00 Lactobacillus Rhamnosus (Culturelle) 1 cap BID PO Last administered on at 19:34; Start 06/04/18 at 21:00 Active Scripts Active Reported Aspirin 325 Mg Tablet 325 Mg PO DAILY Atorvastatin Calcium 40 Mg Tablet 40 Mg PO DAILY Benazepril Hcl 20 Mg Tablet 20 Mg PO QHS Donepezil Hcl 10 Mg Tablet 10 Mg PO QHS Furosemide 20 Mg Tablet 20 Mg PO DAILY Ipratropium [place] 30 Ml [place] 2 Spr NS BID Levetiracetam 500 Mg Tablet 500 Mg PO BID Metformin Hcl 500 Mg Tablet 500 Mg PO BIDWMEALS Tamsulosin Hcl 0.4 Mg Cap.er.24h 0.4 Mg PO DAILY I have reviewed the current psychotropics carefully including drug interactions. Risk benefit ratio favors no change other than as noted in my dictated progress note. Diagnosis: Problems: (1) Anxiety disorder (2) Dementia in Alzheimer's disease with delusions (3) Dementia in Alzheimer's disease with depression (4) Dementia, vascular, with delusions (5) Dementia, vascular, with depression (6) Impulse control disorder CHAPITO CASTANO MD Jun 10, 2018 20:44
[2018-06-10] MEDS ORDERED: AMLO5TAB2 PO (22:24)
[2018-06-10] MEDS ORDERED: SERT50TA PO (22:25)
[2018-06-10] MEDS ORDERED: QUET25TA5 PO (22:26)
[2018-06-10] MEDS ORDERED: CHOL500050 PO (22:28)
[2018-06-10] MEDS ORDERED: LACT1CAP21 PO (22:28)
[2018-06-10] MEDS ORDERED: MAGN2400 PO (22:30)
[2018-06-10] MEDS ORDERED: MAG355OR17 PO (22:32)
--- NOTE | 2018-06-10 22:32 | PN ---
DATE: 06/09/2018 PSYCHIATRIC PROGRESS NOTE This is a late entry 06/09/2018 covers elements not covered in my initial note. SUBJECTIVE: I met with the patient in the morning. Overall, the patient remains confused, but redirectable, not fixated on needing to smoke. Compliant with medications. REVIEW OF SYSTEMS: No CV, , pulmonary, eye, ENT system symptoms on review. Slept 9-3/4 hours. Reliability poor. MENTAL STATUS EXAM: Oriented to himself. Insight, judgment, recent and remote memory, attention, concentration, fund of knowledge poor, consistent with his diagnosis mentioned in my initial note. PLAN: No change from the initial note. MAN Wayne CASTANO MD DR: HUNG/arianne JOB#: [id number] / [id number]
[2018-06-10] MEDS ORDERED: ACET325T9 PO (22:38)
[2018-06-10] MEDS ORDERED: MENT113G6 TP (22:40)
[2018-06-10] MEDS ORDERED: METH57CR7 TP (22:42)
[2018-06-11 05:48] VITALS: BP 106/68
[2018-06-11] MEDS: levETIRAcetam 500 MG TABLET PO SCH ×2 (08:23→19:43)
[2018-06-11] MEDS: NICOTINE 14MG PATCH. TD SCH (08:23)
[2018-06-11] MEDS: metFORMIN 500 MG TABLET PO SCH ×2 (08:24→16:59)
[2018-06-11] MEDS: SERTRALINE 50 MG TABLET. PO SCH (08:24)
[2018-06-11] MEDS: LACTOBACILLUS RHAMNOSUS GG 1 CAPSULE. PO SCH ×2 (08:24→19:44)
[2018-06-11] MEDS: ATORVASTATIN CALCIUM 20 MG TABLET PO SCH (08:24)
[2018-06-11] MEDS: amLODIPine BESYLATE 5 MG TABLET PO SCH (08:24)
[2018-06-11] MEDS: TAMSULOSIN 0.4 MG CAP.ER.24H. PO SCH (08:25)
[2018-06-11] MEDS: ASPIRIN 325 MG TABLET PO SCH (08:25)
[2018-06-11] MEDS: LISINOPRIL 20 MG TABLET PO SCH (08:25)
[2018-06-11] MEDS: IPRATROPIUM BROMIDE 0.06% NASAL SPRAY 15ML BOTTLE NS SCH ×2 (08:26→19:44)
--- NOTE | 2018-06-11 13:43 | PN ---
DATE: 06/10/2018 PSYCHIATRIC PROGRESS NOTE This is a late entry, 06/10, covers elements not covered in my initial note. SUBJECTIVE: I met with the patient in the evening. Overall, patient remains confused, but redirectable, less fixated on having smoking breaks. REVIEW OF SYSTEMS: No CV, , pulmonary, eye, ENT system symptoms on review. Reliability poor. MENTAL STATUS EXAM: Oriented to himself. Insight, judgment, recent and remote memory, attention, concentration, fund of knowledge poor, consistent with his diagnosis mentioned in my initial note. PLAN: No change from initial note. MAN DiomedesRenae CASTANO MD DR: HUNG/arianne JOB#: [id number] / [id number]
[2018-06-11 15:40] VITALS: BP 128/71
[2018-06-11] MEDS: DONEPEZIL HCL 10 MG TABLET PO SCH (19:43)
[2018-06-11] MEDS: QUEtiapine 25 MG TABLET. PO SCH (19:43)
--- NOTE | 2018-06-11 20:47 | PDOC ---
Exam Note: Lucas Note: Please also refer to the separate dictated note~for this date of service dictated separately.~Patient seen individually. Discussed the patient with Nursing staff reviewed the chart.~Reviewed interim history and current functioning. Reviewed vital signs,~Labs/ Radiology~and current medications noted below. Continue current treatment with the changes noted in the dictated addendum note Assessment: Vital Signs: Vital Signs Date Time Temp Pulse Resp B/P (MAP) Pulse Ox O2 Delivery O2 Flow Rate FiO2 06/11/18 15:40 97.4 58 21 128/71 (90) 96 06/10/18 16:06 Room Air I&O Intake and Output 06/11/18 07:01 Intake Total 1440 ml Balance 1440 ml Intake Oral 1440 ml # Voids 1 # Bowel Movements 1 Labs: Laboratory Tests Test 06/11/18 07:41 Glucose (Fingerstick) 90 mg/dL (70-99) Current Medications: Meds: Current Medications Acetaminophen (Tylenol) 650 mg PRN Q6HRS PRN PO PAIN / TEMP; Start 05/23/18 at 20:45 Multi-Ingredient Ointment (Analgesic [place]) 1 john PRN QID PRN TP MUSCLE PAIN; Start 05/23/18 at 20:45 Al Hydroxide/Mg Hydroxide (Mylanta Plus Xs) 15 ml PRN AFTMEALHC PRN PO DYSPEPSIA; Start 05/23/18 at 20:45 Magnesium Hydroxide (Milk Of Magnesia) 2,400 mg PRN QHS PRN PO CONSTIPATION; Start 05/23/18 at 20:45 Donepezil HCl (Aricept) 10 mg QHS PO Last administered on 06/11/18at 19:43; Start 05/23/18 at 21:00 Aspirin (Vivian Aspirin) 325 mg DAILY PO Last administered on 06/11/18at 08:25; Start 05/24/18 at 09:00 Furosemide (Lasix) 20 mg DAILY PO Last administered on 05/24/18at 09:54; Start at 09:00; Stop 05/24/18 at 11:14; Status DC Tamsulosin HCl (Flomax) 0.4 mg DAILY PO Last administered on 06/11/18at 08:25; Start 05/24/18 at 09:00 Atorvastatin Calcium (Lipitor) 40 mg DAILY PO Last administered on 06/11/18 08 :24; Start 05/24/18 at 09:00 Lisinopril (Prinivil) 20 mg 05/23/18 PO Last administered on 05/24/18at 09:55; Start 05/23/18 at 21:00; Stop 05/23/18 at 21:10; Status DC Ipratropium [place] (Atrovent Nasal) 2 spray BID NS Last administered on 19:44; Start 05/24/18 at 09:00 Levetiracetam (Keppra) 500 mg BID PO Last administered on 06/11/18 19:43; Start 05/23/18 at 21:00 Metformin HCl (Glucophage) 500 mg BIDWMEALS PO Last administered on 06/11/18 16:59; Start 05/24/18 at 08:00 Lisinopril (Prinivil) 20 mg DAILY PO Last administered on 06/11/18 08:25; Start 05/24/18 at 09:00 Amlodipine Besylate (Norvasc) 5 mg DAILY PO Last administered on 06/11/18 08: 24; Start 05/24/18 at 11:30 Nicotine (Nicoderm Cq 14mg) 1 patch DAILY TD Last administered on 06/11/18 08: 23; Start 05/24/18 at 11:30; Stop 06/11/18 at 14:40; Status DC Vitamin D (Vitamin D3) 50,000 unit WEEKLY PO Last administered on 06/08/18at 08: 04; Start 05/25/18 at 13:30 Sertraline HCl (Zoloft) 25 mg DAILY PO ; Start 05/26/18 at 09:00; Stop 05/26/18 at 19:55; Status DC Sertraline HCl (Zoloft) 50 mg DAILY PO Last administered on 06/11/18 08:24; Start 05/26/18 at 09:00 Quetiapine Fumarate (SEROquel) 25 mg QHS PO Last administered on 05/29/18at 19:49 ; Start 05/25/18 at 21:00; Stop 05/30/18 at 16:30; Status DC Quetiapine Fumarate (SEROquel) 37.5 mg QHS PO Last administered on 06/11/18at 19 :43; Start 05/30/18 at 21:00 Trimethoprim/ Sulfamethoxazole (Bactrim Ds) 1 tab BID PO Last administered on at 19:35; Start 05/31/18 at 21:00; Stop 06/10/18 at 21:00; Status DC Lactobacillus Rhamnosus (Culturelle) 1 cap BID PO Last administered on at 19:44; Start 06/04/18 at 21:00 Nicotine (Nicoderm Cq 7mg) 1 patch DAILY TD ; Start 06/12/18 at 09:00 Active Scripts Active Reported [place] Greaseless Cream (Methyl Salicylate/Menthol) 57 Gm Cream..g. 57 Gm TP PRN QID PRN [place] (Menthol) 113 Gm Gel..gram. 113 Gm TP PRN QID PRN Tylenol (Acetaminophen) 325 Mg Tablet 650 Mg PO PRN Q6HRS PRN Advanced Antacid Liquid (Mag Hydrox/Al Hydrox/Simeth) 355 Ml Oral.susp 15 Ml PO PRN AFTMEAL PRN Milk Of Magnesia (Magnesium Hydroxide) 2,400 Mg/10 Ml Oral.susp 2,400 Mg PO PRN QHS PRN Culturelle (Lactobacillus Rhamnosus Gg) 1 Each Capsule 1 Each PO BID Vitamin D3 (Cholecalciferol (Vitamin D3)) 50,000 Unit Capsule 50,000 Unit PO WEEKLY Seroquel (Quetiapine Fumarate) 25 Mg Tablet 37.5 Mg PO HS Zoloft (Sertraline Hcl) 50 Mg Tablet 50 Mg PO DAILY Amlodipine Besylate 5 Mg Tablet 5 Mg PO DAILY Aspirin 325 Mg Tablet 325 Mg PO DAILY Atorvastatin Calcium 40 Mg Tablet 40 Mg PO DAILY Benazepril Hcl 20 Mg Tablet 20 Mg PO QHS Donepezil Hcl 10 Mg Tablet 10 Mg PO QHS Furosemide 20 Mg Tablet 20 Mg PO DAILY Ipratropium [place] 30 Ml [place] 2 Spr NS BID Levetiracetam 500 Mg Tablet 500 Mg PO BID Metformin Hcl 500 Mg Tablet 500 Mg PO BIDWMEALS Tamsulosin Hcl 0.4 Mg Cap.er.24h 0.4 Mg PO DAILY I have reviewed the current psychotropics carefully including drug interactions. Risk benefit ratio favors no change other than as noted in my dictated progress note. Diagnosis: Problems: (1) Anxiety disorder (2) Dementia in Alzheimer's disease with delusions (3) Dementia in Alzheimer's disease with depression (4) Dementia, vascular, with delusions (5) Dementia, vascular, with depression (6) Impulse control disorder CHAPITO CASTANO MD Jun 11, 2018 20:47
[2018-06-12] MEDS ORDERED: NICO1PAT25 TP (04:04)
[2018-06-12] MEDS ORDERED: LISI-334 PO (04:04)
[2018-06-12 05:34] VITALS: BP 131/72
[2018-06-12] MEDS: levETIRAcetam 500 MG TABLET PO SCH (08:08)
[2018-06-12] MEDS: ATORVASTATIN CALCIUM 20 MG TABLET PO SCH (08:08)
[2018-06-12] MEDS: ASPIRIN 325 MG TABLET PO SCH (08:08)
[2018-06-12] MEDS: amLODIPine BESYLATE 5 MG TABLET PO SCH (08:09)
[2018-06-12] MEDS: LACTOBACILLUS RHAMNOSUS GG 1 CAPSULE. PO SCH (08:09)
[2018-06-12] MEDS: metFORMIN 500 MG TABLET PO SCH (08:09)
[2018-06-12 08:10] VITALS: BP 131/72
[2018-06-12] MEDS: IPRATROPIUM BROMIDE 0.06% NASAL SPRAY 15ML BOTTLE NS SCH (08:10)
[2018-06-12] MEDS: LISINOPRIL 20 MG TABLET PO SCH (08:10)
[2018-06-12] MEDS: SERTRALINE 50 MG TABLET. PO SCH (08:10)
[2018-06-12] MEDS: TAMSULOSIN 0.4 MG CAP.ER.24H. PO SCH (08:10)
[2018-06-12] MEDS ORDERED: NICOTINE 7MG PATCH. TD SCH (09:00)
[2018-06-12] MEDS ORDERED: NICO1PAT25 TD (10:48)
[2018-06-12] MEDS ORDERED: NICO1PAT27 TD (10:51)
--- NOTE | 2018-06-12 18:09 | PDOC ---
Exam Note: Lucas Note: Please also refer to the separate dictated note~for this date of service dictated separately.~Patient seen individually. Discussed the patient with Nursing staff reviewed the chart.~Reviewed interim history and current functioning. Reviewed vital signs,~Labs/ Radiology~and current medications noted below. Continue current treatment with the changes noted in the dictated addendum note Assessment: Vital Signs: Vital Signs Date Time Temp Pulse Resp B/P (MAP) Pulse Ox O2 Delivery O2 Flow Rate FiO2 06/12/18 08:10 60 131/72 06/12/18 05:34 97.9 18 95 06/10/18 16:06 Room Air I&O Intake and Output 06/12/18 07:00 Intake Total 1200 ml Balance 1200 ml Intake Oral 1200 ml # Voids 1 Labs: Laboratory Tests Test 06/12/18 07:14 Glucose (Fingerstick) 92 mg/dL (70-99) Current Medications: Meds: Current Medications Acetaminophen (Tylenol) 650 mg PRN Q6HRS PRN PO PAIN / TEMP; Start 05/23/18 at 20:45; Stop 06/12/18 at 13:12; Status DC Multi-Ingredient Ointment (Analgesic [place]) 1 john PRN QID PRN TP MUSCLE PAIN; Start 05/23/18 at 20:45; Stop 06/12/18 at 13:12; Status DC Al Hydroxide/Mg Hydroxide (Mylanta Plus Xs) 15 ml PRN AFTMEALHC PRN PO DYSPEPSIA; Start 05/23/18 at 20:45; Stop 06/12/18 at 13:12; Status DC Magnesium Hydroxide (Milk Of Magnesia) 2,400 mg PRN QHS PRN PO CONSTIPATION; Start 05/23/18 at 20:45; Stop 06/12/18 at 13:12; Status DC Donepezil HCl (Aricept) 10 mg QHS PO Last administered on 06/11/18at 19:43; Start 05/23/18 at 21:00; Stop 06/12/18 at 13:12; Status DC Aspirin (Vivian Aspirin) 325 mg DAILY PO Last administered on 06/12/18at 08:08; Start 05/24/18 at 09:00; Stop 06/12/18 at 13:12; Status DC Furosemide (Lasix) 20 mg DAILY PO Last administered on 05/24/18at 09:54; Start at 09:00; Stop 05/24/18 at 11:14; Status DC Tamsulosin HCl (Flomax) 0.4 mg DAILY PO Last administered on 06/12/18at 08:10; Start 05/24/18 at 09:00; Stop 06/12/18 at 13:12; Status DC Atorvastatin Calcium (Lipitor) 40 mg DAILY PO Last administered on 06/12/18at 08 :08; Start 05/24/18 at 09:00; Stop 06/12/18 at 13:12; Status DC Lisinopril (Prinivil) 20 mg 05/23/18 PO Last administered on 05/24/18at 09:55; Start 05/23/18 at 21:00; Stop 05/23/18 at 21:10; Status DC Ipratropium [place] (Atrovent Nasal) 2 spray BID NS Last administered on at 08:10; Start 05/24/18 at 09:00; Stop 06/12/18 at 13:12; Status DC Levetiracetam (Keppra) 500 mg BID PO Last administered on 06/12/18at 08:08; Start 05/23/18 at 21:00; Stop 06/12/18 at 13:12; Status DC Metformin HCl (Glucophage) 500 mg BIDWMEALS PO Last administered on 06/12/18at 08:09; Start 05/24/18 at 08:00; Stop 06/12/18 at 13:12; Status DC Lisinopril (Prinivil) 20 mg DAILY PO Last administered on 06/12/18at 08:10; Start 05/24/18 at 09:00; Stop 06/12/18 at 13:12; Status DC Amlodipine Besylate (Norvasc) 5 mg DAILY PO Last administered on 06/12/18at 08: 09; Start 05/24/18 at 11:30; Stop 06/12/18 at 13:12; Status DC Nicotine (Nicoderm Cq 14mg) 1 patch DAILY TD Last administered on 06/11/18at 08: 23; Start 05/24/18 at 11:30; Stop 06/11/18 at 14:40; Status DC Vitamin D (Vitamin D3) 50,000 unit WEEKLY PO Last administered on 06/08/18at 08: 04; Start 05/25/18 at 13:30; Stop 06/12/18 at 13:12; Status DC Sertraline HCl (Zoloft) 25 mg DAILY PO ; Start 05/26/18 at 09:00; Stop 05/26/18 at 19:55; Status DC Sertraline HCl (Zoloft) 50 mg DAILY PO Last administered on 06/12/18at 08:10; Start 05/26/18 at 09:00; Stop 06/12/18 at 13:12; Status DC Quetiapine Fumarate (SEROquel) 25 mg QHS PO Last administered on 05/29/18at 19:49 ; Start 05/25/18 at 21:00; Stop 05/30/18 at 16:30; Status DC Quetiapine Fumarate (SEROquel) 37.5 mg QHS PO Last administered on 06/11/18at 19 :43; Start 05/30/18 at 21:00; Stop 06/12/18 at 13:12; Status DC Trimethoprim/ Sulfamethoxazole (Bactrim Ds) 1 tab BID PO Last administered on at 19:35; Start 05/31/18 at 21:00; Stop 06/10/18 at 21:00; Status DC Lactobacillus Rhamnosus (Culturelle) 1 cap BID PO Last administered on at 08:09; Start 06/04/18 at 21:00; Stop 06/12/18 at 13:12; Status DC Nicotine (Nicoderm Cq 7mg) 1 patch DAILY TD Last administered on 06/12/18at 08: 09; Start 06/12/18 at 09:00; Stop 06/12/18 at 13:12; Status DC Active Scripts Active Reported NICODERM CQ 7mg (Nicotine) 1 Each Patch.td24 1 Patch TD DAILY Lisinopril 20 Mg Tablet 20 Mg PO DAILY [place] Greaseless Cream (Methyl Salicylate/Menthol) 57 Gm Cream..g. 57 Gm TP PRN QID PRN Tylenol (Acetaminophen) 325 Mg Tablet 650 Mg PO PRN Q6HRS PRN Advanced Antacid Liquid (Mag Hydrox/Al Hydrox/Simeth) 355 Ml Oral.susp 15 Ml PO PRN AFTMEAL PRN Milk Of Magnesia (Magnesium Hydroxide) 2,400 Mg/10 Ml Oral.susp 2,400 Mg PO PRN QHS PRN Culturelle (Lactobacillus Rhamnosus Gg) 1 Each Capsule 1 Each PO BID Vitamin D3 (Cholecalciferol (Vitamin D3)) 50,000 Unit Capsule 50,000 Unit PO WEEKLY Seroquel (Quetiapine Fumarate) 25 Mg Tablet 37.5 Mg PO HS Zoloft (Sertraline Hcl) 50 Mg Tablet 50 Mg PO DAILY Amlodipine Besylate 5 Mg Tablet 5 Mg PO DAILY Aspirin 325 Mg Tablet 325 Mg PO DAILY Atorvastatin Calcium 40 Mg Tablet 40 Mg PO DAILY Benazepril Hcl 20 Mg Tablet 20 Mg PO QHS Donepezil Hcl 10 Mg Tablet 10 Mg PO QHS Ipratropium [place] 30 Ml [place] 2 Spr NS BID Levetiracetam 500 Mg Tablet 500 Mg PO BID Metformin Hcl 500 Mg Tablet 500 Mg PO BIDWMEALS Tamsulosin Hcl 0.4 Mg Cap.er.24h 0.4 Mg PO DAILY I have reviewed the current psychotropics carefully including drug interactions. Risk benefit ratio favors no change other than as noted in my dictated progress note. Diagnosis: Problems: (1) Impulse control disorder (2) Dementia, vascular, with depression (3) Dementia, vascular, with delusions (4) Dementia in Alzheimer's disease with depression (5) Dementia in Alzheimer's disease with delusions (6) Anxiety disorder CHAPITO CASTANO MD Jun 12, 2018 18:09
--- NOTE | 2018-06-13 00:09 | PN ---
DATE: 06/11/2018 PSYCHIATRIC PROGRESS NOTE This is a late entry, 06/11, covers elements not covered in my initial note. SUBJECTIVE: I met with the patient in the evening. The patient slept 6-1/2 hours previous evening. He remains confused, but has not been agitated, aggressive, does come out for groups. REVIEW OF SYSTEMS: No CV, , pulmonary, eye, ENT system symptoms on review, but he is hard of hearing, hears best in the left ear. MENTAL STATUS EXAM: Oriented to himself. Insight, judgment, recent and remote memory, attention, concentration, fund of knowledge poor, consistent with his diagnosis mentioned in my initial note. PLAN: The patient's nicotine patch will be reduced down to 7 mg a day. Continue Aricept, Zoloft, Seroquel at current dosage with transition to a lower level of care, 06/12. MAN Wayne CASTANO MD DR: HUNG/arianne JOB#: [id number] / [id number]
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
== END 2018-06-12 13:00 | DRG 57 ==
LOC: OBSVTOIN 20:10 → GEROPSY 20:10
PROVIDERS: ADMIT Psychiatry & Neurology Psychiatry; ATTEND Psychiatry & Neurology Psychiatry
DX: G30.9 Alzheimer's disease, unspecified (principal); E87.1 Hypo-osmolality and hyponatremia; F01.51 Vascular dementia, unspecified severity, with behavioral disturbance; F02.81 Dementia in other diseases classified elsewhere, unspecified severity, with behavioral disturbance; E11.9 Type 2 diabetes mellitus without complications; N40.0 Benign prostatic hyperplasia without lower urinary tract symptoms; I10 Essential (primary) hypertension; J44.9 Chronic obstructive pulmonary disease, unspecified; E78.5 Hyperlipidemia, unspecified; F32.9 Major depressive disorder, single episode, unspecified; F41.9 Anxiety disorder, unspecified; F63.9 Impulse disorder, unspecified; H91.90 Unspecified hearing loss, unspecified ear; F17.200 Nicotine dependence, unspecified, uncomplicated; Z79.899 Other long term (current) drug therapy; Z79.84 Long term (current) use of oral hypoglycemic drugs; Z88.0 Allergy status to penicillin
CPT/HCPCS: 36415; 80053; 80061; 81001; 82306; 82607; 82947; 83036; 83540; 83550; 83735; 84436; 84443; 84480; 85025; 86592; 99407